=== PATIENT | male | born 1950 | race Caucasian/White ===

== ENCOUNTER → 2019-11-20 | Outpatient (REF) | payer MEDICARE, MEDICAID ==
[~2019-11-20] MED LIST: AMLO10TA5 PO; ARIP1TAB6 PO; ASPI81TA85 PO; ATOR40TA75 PO; B-12100021 PO; CARV6.25 PO; COMB0.2S OU; FAMO40TA3 PO; FINA5TAB2 PO; FLOM0.4C39 PO; FLUO40CA PO; MAGN400T14 PO; RHOP0.02 OS; VITA200028 PO; XALA0.007 OU
== END ==
LOC: M SMT 13:42
PROVIDERS: ATTEND Urology
DX: D49.4 Neoplasm of unspecified behavior of bladder (principal); N39.0 Urinary tract infection, site not specified

== ENCOUNTER → 2020-01-15 | Outpatient (REF) | payer MEDICARE, MEDICAID ==
[~2020-01-15] MED LIST changes: +DOCU8.6T PO; +DRIS50003 PO; +MAGN400C2 PO; +MIRA3350 PO
== END ==
LOC: M SMT 16:41
PROVIDERS: ATTEND Urology
DX: D49.4 Neoplasm of unspecified behavior of bladder (principal); N39.0 Urinary tract infection, site not specified

== ENCOUNTER → 2020-01-19 | Outpatient (CLI) | payer MEDICARE, MEDICAID | LOC: M LABSMTC 12:12 | PROVIDERS: ATTEND Anesthesiology | DX: Z03.818 Encounter for observation for suspected exposure to other biological agents ruled out (principal); Z11.59 Encounter for screening for other viral diseases | CPT/HCPCS: C9803; U0003 ==

== ENCOUNTER → 2020-01-23 | Outpatient (CLI) | payer MEDICARE, MEDICAID ==
[~2020-01-23] MED LIST changes: -AMLO10TA5 PO; +AMLO1TAB25 PO; -ASPI81TA85 PO; +ASPI81TA86 PO; +CALC1CAP31 PO; +CEFD300CAP PO; +LISI40TA4 PO; +PLAV1TAB2 PO
== END ==
LOC: M LABSMTC 09:57
PROVIDERS: ATTEND Anesthesiology
DX: Z01.818 Encounter for other preprocedural examination (principal); Z11.59 Encounter for screening for other viral diseases
CPT/HCPCS: C9803; U0003

== ENCOUNTER 2020-01-26 06:14 | Day surgery (SDC) | payer MEDICARE, MEDICAID ==
[~2020-01-26] VITALS: Ht 167.6 cm; Wt 49.0 kg
[2020-01-26] VITALS (9 sets, daily range): BP systolic 162–174; BP diastolic 64–86
[2020-01-26] MEDS: HEPARIN SOD (PORCINE) 5000UNITS/ML 1ML VIAL/SYRINGE SC SCH ×3 (06:00→21:07)
[~2020-01-26 06:14] MED LIST changes: -CALC1CAP31 PO; -CEFD300CAP PO; +LIDOCAINE 1% MDV 20ML VIAL SQ PRN; -LISI40TA4 PO; +LR 1,000 ML IV ONE; -PLAV1TAB2 PO; +ceFAZolin SOD 2 GM in IV 1 EA IV ONE
[2020-01-26] MEDS ORDERED: ceFAZolin SOD 2 GM in IV 1 EA IV ONE (07:00)
[2020-01-26] MEDS ORDERED: LR 1,000 ML IV ONE (07:00)
[2020-01-26] MEDS ORDERED: MIDAZOLAM INJ 2MG/2ML VIAL (J2250 PER 1MG) As Ordered ONE (07:16)
[2020-01-26] MEDS ORDERED: fentaNYL 100 MCG/2 ML INJECTION (J3010) As Ordered ONE (07:17)
[2020-01-26] MEDS ORDERED: LIDOCAINE 2% 100MG/5ML SDV (FOR ANES.) As Ordered ONE (07:17)
[2020-01-26] MEDS ORDERED: propofoL 200 MG/20 ML VIAL As Ordered ONE (07:18)
[2020-01-26] MEDS ORDERED: ISOVUE-300 61% 50ML VIAL As Ordered ONE (08:17)
[2020-01-26] MEDS ORDERED: ePHEDrine SULFATE 25 MG/5 ML(5MG/ML) SYRINGE As Ordered ONE (08:25)
[2020-01-26] MEDS ORDERED: LABETALOL 100MG/20ML VIAL As Ordered ONE (08:26)
[2020-01-26] MEDS ORDERED: ONDANSETRON 4MG/2ML VIAL As Ordered ONE (08:31)
[2020-01-26] MEDS ORDERED: ONDANSETRON 4MG/2ML VIAL IV PRN ×2 (09:00→09:15)
[2020-01-26] MEDS ORDERED: ACETAMINOPHEN TAB 650MG DOSE (2X325MG) PO PRN (09:00)
[2020-01-26] MEDS ORDERED: fentaNYL 100 MCG/2 ML INJECTION (J3010) IV PRN (09:15)
[2020-01-26] MEDS ORDERED: PILL CUTTER 1 EACH XX PRN (09:15)
[2020-01-26] MEDS ORDERED: LR 1,000 ML IV SCH (09:15)
[2020-01-26] MEDS ORDERED: ACETAMINOPHEN *IV* 1,000 MG in IV 1 EA IV ONE (09:30)
--- NOTE | 2020-01-26 11:25 | REP ---
Retrograde pyelogram: Two views. History: Left stent placement. 16 seconds of fluoroscopy time is reported. Findings: A sequence of two last image hold fluoroscopically obtained spot radiographs of the abdomen document left ureteral cannulation, contrast injection, and double pigtail stent placement. Electronically Signed by Bishnu Higgins MD 01/26/2020 08:33 A
[2020-01-26] MEDS: ASPIRIN 81 MG ENTERIC TAB PO SCH (12:41)
[2020-01-26] MEDS: FLUoxetine 20 MG CAP PO SCH (12:41)
[2020-01-26] MEDS: SENOKOT S TAB PO SCH (12:41)
[2020-01-26] MEDS: FAMOTIDINE 20 MG TAB PO SCH (12:42)
[2020-01-26] MEDS: CARVedilol 6.25 MG TAB PO SCH (20:38)
[2020-01-26] MEDS ORDERED: amLODIPine 10 MG TAB PO SCH (21:00)
[2020-01-26] MEDS ORDERED: LATANOPROST 0.005% OPHTH SOLN 2.5 ML OU SCH (21:00)
[2020-01-26] MEDS ORDERED: ATORVASTATIN 20 MG TAB PO SCH (21:00)
[2020-01-27 02:00] VITALS: BP 149/71
[2020-01-27] MEDS: HEPARIN SOD (PORCINE) 5000UNITS/ML 1ML VIAL/SYRINGE SC SCH (05:03)
[2020-01-27 06:00] VITALS: BP 139/69
[2020-01-27 09:11] VITALS: BP 141/70
[2020-01-27] MEDS: ASPIRIN 81 MG ENTERIC TAB PO SCH (09:11)
[2020-01-27] MEDS: CARVedilol 6.25 MG TAB PO SCH (09:11)
[2020-01-27] MEDS: FLUoxetine 20 MG CAP PO SCH (09:11)
[2020-01-27] MEDS: FAMOTIDINE 20 MG TAB PO SCH (09:11)
[2020-01-27] MEDS: SENOKOT S TAB PO SCH (09:11)
[2020-01-27 10:00] VITALS: BP 150/73
--- NOTE | 2020-01-28 10:41 | RO ---
DATE OF PROCEDURE: 01/26/2020 PREPROCEDURE DIAGNOSIS: Bladder tumors. POSTPROCEDURE DIAGNOSIS: Bladder tumors. PROCEDURE: Cystoscopy, transurethral resection of bladder tumors (less than 2 cm), left retrograde pyelogram with intraoperative interpretation of images, left ureteral stent placement. SURGEON: True Brantley MD [employer] ELECTRICAL ENGINEER: None ANESTHESIA: General. OPERATIVE INDICATIONS: This is a 69-year-old male who was found to have a small bladder tumor near the dome on recent cystoscopy. He is brought to the operating room today for treatment. DESCRIPTION OF PROCEDURE: The patient was brought to the operating room, and general anesthesia was induced. Prophylactic antibiotics were infused. The patient was then placed in the dorsal lithotomy position and prepped and draped in the usual sterile fashion. At this point, I attempted to insert a resectoscope into the urethral meatus, but it would not go into the urethral meatus because it was too narrow. I, therefore, dilated the meatus with 28-Turkish using curved metal sounds. I then inserted the resectoscope using the visual obturator and advanced into the bladder. The bladder was then thoroughly examined. Of note, there was a small papular tumor measuring around 0.5 cm size at the dome. There also appeared to be a small tumor on the left lateral wall just lateral to the left ureteral orifice. No other tumors were seen. Other than that, there was a moderate amount of bullous edema inside the bladder. I then utilized a loop to resect both these tumors, and they were sent separately. The one at the dome was sent as a bladder tumor at dome, and the one on the left was sent as bladder tumor left lateral wall. Once done, the base of the resection was cauterized to achieve good hemostasis. Of note, due to the proximity of the tumor in the left wall to the left ureter orifice, I examined it for several minutes, and I did not see the left ureteral orifice reflux in the urine. This raised concern; and, therefore, I decided to place a left ureteral stent. I then advanced a guidewire to the left collecting system, and then a 5-Turkish open-ended ureteral catheter was advanced over the wire. The wire was then removed, and then a retrograde pyelogram was performed. It was notable for mild left hydronephrosis. There was no extravasation. I then advanced the wire back up the left collecting system and removed the ureteral catheter. I then utilized the wire to advance a 6-Turkish x 22-32 cm double J ureteral stent into the left collecting system. The wire was removed, and there were adequate curls of the stent in the left renal pelvis and in the bladder. I then removed the resectoscope and inserted an 18-Turkish Arrington catheter into the bladder. The balloon was filled with 10 mL of sterile water, and then the catheter was connected to gravity drainage. This marked the conclusion of the procedure. The patient was taken out of the dorsal lithotomy position, awakened from anesthesia, and transported to the recovery room in stable condition. ESTIMATED BLOOD LOSS: 5 mL. COMPLICATIONS: None. SPECIMENS: Bladder tumor at the dome, bladder tumor in left lateral wall. PLAN: The patient will be monitored overnight and then discharged home. He will followup in the clinic in approximately 1 week for pathology results. We will take his stent out in a week or two, as well.
== END 2020-01-27 12:00 | disposition home or self-care (01) ==
LOC: M SDC 06:14 → M MSPAV 11:20 → M SDC 01-27 12:00
PROVIDERS: ATTEND Urology
DX: C67.1 Malignant neoplasm of dome of bladder (principal); C67.2 Malignant neoplasm of lateral wall of bladder; I25.2 Old myocardial infarction; I10 Essential (primary) hypertension; E11.9 Type 2 diabetes mellitus without complications; Z95.1 Presence of aortocoronary bypass graft; Z91.010 Allergy to peanuts; Z79.82 Long term (current) use of aspirin; Z79.899 Other long term (current) drug therapy
CPT/HCPCS: 36415; 52234; 52332; 74420; 86850; 86900; 86901; 88305; C1769; C2617; G0378; J0131; J1644; J2405; J3010; Q9967

== ENCOUNTER 2020-02-10 15:17 | Inpatient (IN) | payer MEDICARE, MEDICAID ==
[~2020-02-10] VITALS: Ht 167.6 cm; Wt 50.3 kg
[~2020-02-10 15:17] MED LIST changes: +AMLO10TA5 PO; -AMLO1TAB25 PO; +ASPI81TA85 PO; -ASPI81TA86 PO; -LIDOCAINE 1% MDV 20ML VIAL SQ PRN; -LR 1,000 ML IV ONE; -ceFAZolin SOD 2 GM in IV 1 EA IV ONE
[2020-02-10 17:55] VITALS: BP 138/65
[2020-02-10] MEDS ORDERED: PERCOCET 5MG/325MG TAB PO PRN ×2 (19:00)
[2020-02-10] MEDS ORDERED: MORPHINE 4 MG/ML 1ML VIAL/SYRINGE (J2270) IV PRN (19:00)
[2020-02-10] MEDS ORDERED: MORPHINE 4 MG/ML 1ML VIAL/SYRINGE (J2270) IV ONE (19:00)
[2020-02-10 19:28] LABS: BASO % 0.3 % (0.0-1.0); EOS % 0.1 % (0.0-3.0); HEMOGLOBIN 10.8 g/dl (13.5-17.5); LYMPH # 0.8 10^3/uL (1.5-5.0); LYMPH % 7.7 % (24.0-44.0); MEAN CORPUSCULAR HEMOGLOBIN 29.5 pg (27.0-33.0); MEAN CORPUSCULAR HGB CONC 32.7 g/dl (32.0-36.5); MEAN CORPUSCULAR VOLUME 90.2 fl (80.0-96.0); MONO # 0.3 10^3/uL (0.0-0.8); MONO % 2.5 % (0.0-5.0); NEUTROPHILS # 8.8 10^3/uL (1.5-8.5); NEUTROPHILS % 88.7 % (36.0-66.0); PLATELET COUNT, AUTOMATED 198 10^3/uL (150-450); RED BLOOD COUNT 3.66 10^6/uL (4.30-6.10)
[2020-02-10] MEDS ORDERED: LISI40TA PO (19:38)
[2020-02-10] MEDS ORDERED: CALC1CAP31 PO (19:38)
[2020-02-10] MEDS ORDERED: PLAV1TAB2 PO (19:38)
[2020-02-10 19:53] LABS: ALBUMIN 3.2 GM/DL (3.2-5.2); BILIRUBIN,TOTAL 0.6 MG/DL (0.2-1.0); CALCIUM LEVEL 8.6 MG/DL (8.8-10.2); CREATININE FOR GFR 2.17 MG/DL (0.70-1.30); GLOMERULAR FILTRATION RATE 32.3 (>49); POTASSIUM SERUM 4.2 MEQ/L (3.5-5.1); TOTAL PROTEIN 6.9 GM/DL (6.4-8.2)
[2020-02-10 19:55] LABS: CK-MB VALUE MASS 2.9 NG/ML (<3.6); MB/CK RELATIVE INDEX 4.26 (< OR =4); TROPONIN I 0.02 NG/ML (< 0.10)
[2020-02-10 20:00] VITALS: BP 166/79
--- NOTE | 2020-02-10 21:45 | SMCUROLCON ---
Urology Consultation General Date of Consultation 02/10/20 Reason For Consultation This patient is seen for Post Op Bladder Surgery Complications. History of Present Illness The patient is a 69-year-old white male with a past medical history for bladder cancer, status post bladder tumor resection and left ureteral stent insertion. The patient was found to have bladder cancer and had a bladder tumor resection last month. A left ureteral stent was inserted. Because the left wall bladder tumor was quite near the ureteral orifice. Also at the time of surgery, the patient was noted to have severe bullous edema of the bladder rose for unknown reason. He states that he had been voiding quite well until recently and this diminished because he just had no appetite or thirst and therefore was not eating or drinking anything for several days. He presented to the emergency room at [facility] for complaint of abdominal discomfort. A Arrington catheter was inserted and a CT scan was performed. The scan reportedly showed air in the bladder wall. I cannot find those x-rays or the report to review. Urology consult was called to help manage this patient. Past Medical History Medical History Cataracts, hearing loss, cardiac disorder, prior myocardial infarction, coronary artery disease, hypertension, bladder cancer, arthritis, diabetes, depression and anxiety Surgical Hstory Patient had a coronary artery bypass grafting, TUR bladder tumor. eye and ear surgery Family History Significant Family History: No pertinent family hx Medications Current Medications Current Medications Medications (Trade) Dose Ordered Sig/Chantal Route PRN Reason Start Time Stop Time Status Last Admin Dose Admin Home Med (Med Rec Complete!) ASDIRECTED XX 02/10/20 19:45 02/10/20 19:41 DC Morphine Sulfate (Morphine Sulfate Inj) 3 mg Q2HP PRN IV SEVERE PAIN (PS 8-10) 02/10/20 19:00 Oxycodone/ Acetaminophen (Percocet 5mg/ 325mg Tablet) 1 tab Q4HP PRN PO MILD/MODERATE PAIN (PS 1-7) 02/10/20 19:00 Oxycodone/ Acetaminophen (Percocet 5mg/ 325mg Tablet) 2 tab Q6HP PRN PO SEVERE PAIN (PS 8-10) 02/10/20 19:00 Allergies Allergies: Coded Allergies: [place] (Verified Allergy, Intermediate, hives, 11/17/19) Review of Systems General: Reports: Normal Appetite; Denies: Fatigue, Malaise Constitutional: Denies: Fever, Chills, Sweats, Weakness, Malaise Eyes: Denies: Pain, Vision change ENT: Denies: Head Aches, Sore Throat, Epistaxis Skin: Denies: Rash, Lesions, Breakdown, Nail Changes Pulmonary: Denies: Dyspnea, Cough Cardiovascular: Denies Chest Pain, Denies Palpitations Gastrointestinal: Reports: Constipation; Denies: Nausea, Vomiting, Abdominal Pain Genitourinary: Reports: Other Symptoms (difficulty voiding) Hematologic: Denies: Bruising, Bleeding Excessively Endocrine: Denies: Polydipsia, Polyphagia, Polyuria Musculoskeletal: Denies: Neck Pain, Back Pain Neurological: Denies: Weakness, Numbness, Incoordination, Change in Speech Psych: Reports: Mood Normal; Denies: Anxiety, Depression Physical Examination General Exam: Mild Distress EYE EXAM: PERRLA, Conjunctiva & lids normal, EOMI; No: Sclera icteric ENT EXAM: Atraumatic, Mucous membr. moist/pink, Pharynx Normal Neck Exam: Supple; No: JVD, thyromegaly Abdomen Exam: Other (flat, soft, benign with no masses, organomegaly or tenderness) Male Exam: Normal Genital Exam Male Exam Prostate is 25 g and benign. No other rectal masses Skin Exam: Nl turgor and temperature; No: Rash, Breakdown Neuro Exam: No: Normal Gait, Normal Speech, Strength at 5/5 X4 ext, Normal Tone, Sensation Intact, Cranial Nerves 3-12 NL, Reflexes 2+, Other Psych Exam: Mental status NL, Mood NL, Oriented x 3 Vital Signs/I&O Vital Signs Date Time Temp Pulse Resp B/P (MAP) Pulse Ox O2 Delivery O2 Flow Rate FiO2 02/10/20 20:26 20 02/10/20 17:55 98.1 59 138/65 (89) 100 Room Air Laboratory Data 24H Labs Laboratory Tests 2 02/10/20 18:26: Urine Color YELLOW, Urine Appearance TURBIDH, Urine pH 5.0, Urine Specific [place] 1.017, Urine Protein 2+H, Urine Glucose (UA) 1+H, Urine Ketones 1+H, Urine Blood 3+H, Urine Nitrite NEGATIVE, Urine Bilirubin NEGATIVE, Urine Urobilinogen 0.2, Urine Leukocyte Esterase 3+H, Urine WBC (Auto) TNTCH, Urine RBC (Auto) 68H, Urine Hyaline Casts (Auto) 0, Urine Bacteria (Auto) 2+H, Urine Squamous Epithelial Cells 0, Urine Mucus (Auto) SMALL, Urine Sperm (Auto) 02/10/20 19:16: Immature Granulocyte % (Auto) 0.7, Neutrophils (%) (Auto) 88.7H, Lymphocytes (%) (Auto) 7.7L, Monocytes (%) (Auto) 2.5, Eosinophils (%) (Auto) 0.1, Basophils (%) (Auto) 0.3, Neutrophils # (Auto) 8.8H, Lymphocytes # (Auto) 0.8L, Monocytes # (Auto) 0.3, Eosinophils # (Auto) 0.0, Basophils # (Auto) 0.0, Nucleated Red Blood Cells % (auto) 0.0, Anion Gap 12, Glomerular Filtration Rate 32.3L, Lactic Acid Level 1.3, Calcium Level 8.6L, Total Bilirubin 0.6, Aspartate Amino Transf (AST/SGOT) 11, Alanine Aminotransferase (ALT/SGPT) 8L, Alkaline Phosphatase 68, Total Creatine Kinase 68, Creatine Kinase MB 2.9, Creatine Kinase MB Relative Index 4.26H, Troponin I 0.02, MB-Gmh-T-Type Natriuretic Peptide 4382H, Total Protein 6.9, Albumin 3.2, Albumin/Globulin Ratio 0.9 CBC/BMP Laboratory Tests 02/10/20 19:16 Microbiology Microbiology 02/10/20 Urine Culture, Received Pending Assessment Patient has ongoing bladder problems. I am not convinced that his current condition is related to his prior surgery. He had been noted to have significant bullous edema of the bladder. Before the bladder tumor resection. He will continue to need monitoring and O2 continue antibiotics at this point. Plan CT of the abdomen and pelvis will be repeated tomorrow. Continue IV antibiotics and intravenous fluids for hydration and monitor the patient's condition with CBC and BMP. I'll continue to follow with you. Time Spent on Consult: Time Spent / Consult (Minutes): 70 HEIDY FERNANDEZ MD Feb 10, 2020 21:36
--- NOTE | 2020-02-10 21:50 | HPE ---
DATE OF ADMISSION: 02/10/2020 CC: Suprapubic bladder pain s/p Bladder tumor biopsy HPI: 69 male w pmh significant for Coronary artery disease (CAD), stent, coronary artery bypass graft (CABG), chronic kidney disease (CKD) IV, diabetes, reflux, obstructive uropathy, bladder tumor, bladder cancer, anemia, transferred from [facility] Emergency Room where he presented with suprapubic abdominal pain status post bladder tumor biopsy with air found on CT abdomen and pelvis, transferred to [facility] for possible bladder perforation. Patient says that he was in his usual state of health until after surgery when "he didn't feel good," with complaints of pain in the suprapubic area. Despite Arrington catheter patient has had worsening pain. He has been having cloudy urine and has been feeling very sleepy all the time. He was very achy from the suprapubic area despite taking pain medications once a day, no fever or chills, worse when he walks, sometimes moves to the right side and the left side. No nausea or vomiting. No fever or chills at home. Patient denies any dysuria, urgency, frequency. He continues with a Arrington catheter. He has had decrease in appetite and weight loss. He has had no back pain. Patient was found to be hypertensive, was given metoprolol at [facility] Emergency Department (ED) and transferred to [facility] for further evaluation. Patient also complains of some shortness of breath, no dyspnea on exertion, paroxysmal nocturnal dyspnea (PND), or orthopnea and did complain of one episode of liquid emesis. PAST MEDICAL HISTORY: Coronary artery disease (CAD), stent, coronary artery bypass graft (CABG), chronic kidney disease (CKD) IV, diabetes, reflux, obstructive uropathy, bladder tumor, bladder cancer, anemia. SURGICAL HISTORY: Bladder tumor biopsy 01/26/2020, CABG 2014, endoscopy with esophageal dilatation 2018. HOME MEDICATIONS: - amlodipine 10 mg nightly - Abilify - aspirin 81 daily - Lipitor 40 daily - Coreg 6.25 twice a day - vitamin B12 1000 mcg daily - Colace 100 twice a day - vitamin D 50,000 units weekly - finasteride 5 mg daily - glipizide 2.5 daily - latanoprost drops as needed - famotidine 40 daily - fluoxetine 40 daily - Rhopressa - polyethylene glycol - Senna nightly - Flomax 0.4 nightly - Timolol - torsemide ALLERGIES: Peanuts, eggs, orange allergy and milk allergy. SOCIAL HISTORY: Patient lives in an apartment alone. He has a friend who is the health care proxy. He does not have a health care proxy form nor does he have a Medical Orders for Life-Sustaining Treatment (MOLST) form filled out. Father of cancer, unknown type. Mother of old age. 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 Has not touched alcohol in about 3-5 years. Lives by himself in the apartment. REVIEW OF SYSTEMS: Per history of present illness (HPI). 12-point system otherwise negative. PHYSICAL EXAMINATION: Temperature 98.1, pulse 59, respiratory rate 16, blood pressure 138/65, 100% on room air. Generally: Patient appears older than his stated age, disheveled, missing teeth. Dry mucous membranes. No jugular venous distention (JVD). No thyromegaly. No cervical lymphadenopathy. Lungs: Clear to auscultation. No wheezing, rales, or rhonchi. Heart: S1, S2, sinus bradycardia. Patient has a midsternal well-healed scar. Abdomen: Soft, tender in suprapubic area. Arrington catheter in place with cloudy urine. Extremities: No cyanosis, clubbing, or any pitting edema. LABORATORY DATA: From [facility] today: White count 9.8, hemoglobin 12, hematocrit 36, platelet count 194, 77% neutrophils. INR 1.02, PT 10.6, PTT 25.6. BNP 3449. Sodium 141, potassium 4, chloride 99, bicarbonate 29, BUN 40, creatinine 2.3, glucose 122, lactic acid of 2, calcium 9.1, total bilirubin 0.8, AST 16, ALT 10, alkaline phosphatase 72, troponin less than 0.017, total protein 7.5, albumin of 3.4. ASSESSMENT AND PLAN: This is a 69-year-old male with history of bladder cancer presented with suprapubic pain, shortness of breath, and one episode of nausea with suprapubic pain, questionable air in the bladder, rule out perforation, transferred to [facility] for further evaluation by urology. CURRENT ISSUES: 1. Abnormal CT finding of air in bladder Rule out perforation versus cystitis. Patient will be given intravenous antibiotics, IV fluids. Will be kept nothing by mouth. Urologist, Dr. Nur, has been consulted. Check urinalysis (UA), urine culture and sensitivity (C and S). Compression stockings for deep venous thrombosis (DVT) prophylaxis. 2. Bladder cancer. Currently under Dr. Brantley. Outpatient followup. Urologist, Dr. Nur, has been consulted during this admission. 3. Uncontrolled hypertension. Currently 137 systolic after patient was given medications. Will continue on his home medication list. Continue with nothing by mouth status. For now, hold patient's aspirin in case he goes to the operating room. 4. Chronic bladder outlet obstruction. Currently with Arrington catheter with urinary retention. May resume on home medications. 5. History of coronary artery disease (CAD) / coronary artery bypass graft (CABG). Aspirin will be held for now until patient is seen by urology. He will then decide whether he is appropriate for evaluation of bladder perforation. Will obtain a stat bladder ultrasound. 5. Hypertension. May resume on home dose of Coreg. 6. History of reflux. Continue on famotidine. 7. Depression. Continue on fluoxetine. Patient is DO NOT RESUSCITATE / DO NOT INTUBATE. MTDD
[2020-02-11] VITALS: BP 167/70
[2020-02-11] MEDS: NS 1,000 ML IV SCH ×2 (02:11→16:00)
[2020-02-11 04:00] VITALS: BP 150/66
[2020-02-11 05:40] LABS: HEMATOCRIT 34.9 % (42.0-52.0); HEMOGLOBIN 11.2 g/dl (13.5-17.5); MEAN CORPUSCULAR HEMOGLOBIN 29.6 pg (27.0-33.0); MEAN CORPUSCULAR HGB CONC 32.1 g/dl (32.0-36.5); MEAN CORPUSCULAR VOLUME 92.3 fl (80.0-96.0); PLATELET COUNT, AUTOMATED 182 10^3/uL (150-450); RED BLOOD COUNT 3.78 10^6/uL (4.30-6.10); WHITE BLOOD COUNT 10.2 10^3/uL (4.0-10.0)
[2020-02-11 05:57] LABS: CALCIUM LEVEL 8.5 MG/DL (8.8-10.2); CREATININE FOR GFR 2.33 MG/DL (0.70-1.30); GLOMERULAR FILTRATION RATE 29.7 (>49)
[2020-02-11] MEDS ORDERED: MIRALAX *UNIT DOSE* 17GM PACKET PO PRN (07:00)
[2020-02-11] MEDS ORDERED: PILL CUTTER 1 EACH XX PRN (07:30)
[2020-02-11 08:00] VITALS: BP_SYST 142; BP_SYST 152; BP_DIAS 70; BP_DIAS 84
[2020-02-11] MEDS ORDERED: LevoFLOXacin IV 750 MG in IV 1 EA IV ONE (08:00)
[2020-02-11] MEDS: SENOKOT S TAB PO SCH (08:56)
[2020-02-11] MEDS: MAGNESIUM OXIDE 400 MG TAB (MAG-OX) PO SCH (08:56)
[2020-02-11] MEDS: FLUoxetine 20 MG CAP PO SCH (08:56)
[2020-02-11] MEDS: CARVedilol 6.25 MG TAB PO SCH ×2 (08:56→21:00)
[2020-02-11] MEDS: CALCITRIOL 0.25 MCG CAP (S0169) PO SCH (08:56)
[2020-02-11] MEDS: FAMOTIDINE 20 MG TAB PO SCH (08:56)
[2020-02-11] MEDS: CLOPIDOGREL 75 MG TAB PO SCH (09:00)
[2020-02-11] MEDS: ASPIRIN 81 MG ENTERIC TAB PO SCH (09:00)
--- NOTE | 2020-02-11 10:39 | REP ---
CHEST, PORTABLE: Two portable views of the chest are performed. I have no prior study for comparison. There appears to be fibroatelectatic change along the left heart border with no definite acute infiltrate. The heart is not enlarged. The mediastinal silhouette is otherwise unremarkable. There are multiple sternal wires and mediastinal clips present. IMPRESSION: No evidence of acute pulmonary disease. Electronically Signed by Rahul Gunderson MD 02/12/2020 09:24 A
[2020-02-11 12:00] VITALS: BP 154/72
--- NOTE | 2020-02-11 12:09 | ECGEPIP ---
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
--- NOTE | 2020-02-11 15:25 | REP ---
REASON: Pain. PRIORS: None. The lack of intravenous contrast decreases the sensitivity of the exam. The lung bases are clear. Limited evaluation of the solid intra-abdominal organs and gallbladder show no gross abnormalities. Limited evaluation of the pancreas and adrenal glands show no gross abnormalities. Limited evaluation of the right kidney shows no gross abnormalities. Limited evaluation of the left kidney shows a double pigtail stent in place, proximal portion is in the renal pelvis and the distal portion is in the urinary bladder. There is a Arrington balloon decompressing the urinary bladder. Air densities are seen in the dome of the urinary bladder. There is no evidence of free fluid or free air in the abdomen or pelvis. Limited evaluation of the bowel loops and mesenteries show no gross abnormalities. There is no evidence of an intra-abdominal or intrapelvic mass or adenopathy on this limited exam. Evaluation of the abdominal aorta and para-aortic regions show no gross abnormalities. Bone window technique throughout the exam shows age-related chronic changes. IMPRESSION: 1. The exam is limited without intravenous and/or bowel preparatory contrast administration. 2. Bilateral perinephric stranding likely chronic. 3. Left-sided renal collecting system stent. 4. Air density in the urinary bladder, etiology uncertain. 5. Other findings and limitation as described above. Electronically Signed by Kaushal Perez DO 02/11/2020 05:21 P
[2020-02-11 16:00] VITALS: BP 146/68
--- NOTE | 2020-02-11 16:06 | IPNPDOC ---
Text Note Date of Service The patient was seen on 02/11/20. NOTE Subjective: Patient is a 69-year-old male with a PMHx of Bladder cancer w/ obstructive uropathy s/p stent (01/26/2020), CAD s/p stent & CABG, DM2, CKD4, GE RD who was transferred from [facility] ER after experiencing suprapubic abdominal pain. Patient has had a bladder tumor resection one month ago and had a left ureteral stent placed because tumor was near the ureteral orifice. At [facility] patient had a CT scan completed that revealed air in the bladder and was transferred to [facility] for further evaluation. Patient had a urine sample that was sent off, that was consistent with infection. He was admitted to the hospitalist service for further evaluation and treatment and urology was called on consultation. Patient was seen and examined at the bedside. Patient appears to be doing well, sitting up in chair. Denies any nausea, vomiting, diarrhea. Reports mild abdominal pain - but significantly improved. Has Arrington in place. Objective: Vitals (See below) General: Lying in bed, appears comfortable, awake / alert HEENT: NC, AT CVS: +S1S2 Lungs: Fair air entry b/l, air entry appears to be fair bilaterally without evidence of rhonchi, crackles or wheezing Abdomen: Soft, nondistended and nontender Extremities: No evidence of LE edema, - Calf tenderness Assessment and plan: Air in Bladder on CT imaging - likely 2/2 cystitis / recent procedure, possibly 2/2 bladder perforation - Clinically patient reports that his pain is doing significantly better - Remains hemodynamically stable and afebrile - Urine analysis is consistent with infection; urine culture is still pending - CT abdomen / pelvis 02/10: 1. The exam is limited without intravenous and/or bowel preparatory contrast administration. 2. Bilateral perinephric stranding likely chronic. 3. Left-sided renal collecting system stent. 4. Air density in the urinary bladder, etiology uncertain. 5. Other findings and limitation as described above. - Levofloxacin started this morning - Urology on consultation; discussed case; will leave Arrington catheter in place and continue with antibiotics - Patient will likely require Arrington catheter on discharge with continued antibiotics Bladder cancer - c/w Tamsulosin and Finasteride - Urology on consultation - Patient follows with Dr. Brantley as an outpatient Difficulty swallowing - Speech therapy consulted; c/w modified diet HTN - BP well controlled - c/w Amlodipine and Carvedilol with holding parameters CAD s/p CABG and Stent - Denies chest pain, shortness of breath or palpitations - Will resume ASA and Plavix today; no plans for surgical intervention at this time - c/w Atorvastatin DLP - c/w Atorvastatin Depression - c/w Fluoxetine GI prophylaxis - c/w Famotidine DVT prophylaxis - c/w TEDs/Sequentials VS,Fishbone, I+O VS, Fishbone, I+O Laboratory Tests 02/10/20 19:16 02/11/20 05:22 Vital Signs Date Time Temp Pulse Resp B/P (MAP) Pulse Ox O2 Delivery O2 Flow Rate FiO2 02/11/20 12:00 97.4 66 18 154/72 (99) 94 Room Air I&O- Last 24 Hours up to 6 AM 02/11/20 06:00 Intake Total 0 ml Output Total 0 ml Balance 0 ml PACHECO HUDSON MD Feb 11, 2020 16:06
[2020-02-11] MEDS: ONDANSETRON 4MG/2ML VIAL IV PRN (18:34)
--- NOTE | 2020-02-11 19:05 | IPNPDOC ---
Subjective Review oF Systems Chief Complaint The patient is a 69-year-old male admitted with a reason for visit of Post Op Bladder Surgery Complications. Events since Last Encounter CT scan was performed this morning showing that the ureteral stent is in proper position on the left side. Tenderness to have what appears to be air in the anterior bladder wall. I'm not sure if this is where the bladder tumor was resected, or not. This is a perforation, it is extraperitoneal therefore should resolve with Arrington catheter drainage. General: Reports: Normal Appetite; Denies: Fatigue, Malaise Constitutional: Denies: Fever, Chills, Sweats, Weakness, Malaise Objective Physical Examination General Exam: Alert, No Acute Distress Other physical findings The Arrington catheter is draining clear yellow urine and the patient seems to be tolerating this fairly well. No evidence of edema Vital Signs/I&O Vital Signs Date Time Temp Pulse Resp B/P (MAP) Pulse Ox O2 Delivery O2 Flow Rate FiO2 02/11/20 16:00 97.9 61 16 146/68 (94) 96 Room Air I&O- Last 24 Hours up to 6 AM 02/11/20 06:00 Intake Total 0 ml Output Total 0 ml Balance 0 ml Laboratory Data Labs 24H Laboratory Tests 2 02/10/20 19:16: Immature Granulocyte % (Auto) 0.7, Neutrophils (%) (Auto) 88.7H, Lymphocytes (%) (Auto) 7.7L, Monocytes (%) (Auto) 2.5, Eosinophils (%) (Auto) 0.1, Basophils (%) (Auto) 0.3, Neutrophils # (Auto) 8.8H, Lymphocytes # (Auto) 0.8L, Monocytes # (Auto) 0.3, Eosinophils # (Auto) 0.0, Basophils # (Auto) 0.0, Nucleated Red Blood Cells % (auto) 0.0, Anion Gap 12, Glomerular Filtration Rate 32.3L, Lactic Acid Level 1.3, Calcium Level 8.6L, Total Bilirubin 0.6, Aspartate Amino Transf (AST/SGOT) 11, Alanine Aminotransferase (ALT/SGPT) 8L, Alkaline Phosphatase 68, Total Creatine Kinase 68, Creatine Kinase MB 2.9, Creatine Kinase MB Relative Index 4.26H, Troponin I 0.02, SG-Uvj-V-Type Natriuretic Peptide 4382H, Total Protein 6.9, Albumin 3.2, Albumin/Globulin Ratio 0.9 02/11/20 05:22: Nucleated Red Blood Cells % (auto) 0.0, Anion Gap 9, Glomerular Filtration Rate 29.7L, Calcium Level 8.5L CBC/BMP Laboratory Tests 02/10/20 19:16 02/11/20 05:22 Microbiology Microbiology 02/10/20 Urine Culture, Received Pending Assessment/Plan Date Seen The patient was seen on 02/11/20. Problems (1) Bladder tumor Urology Problem Text: Bladder tumor can be managed as an outpatient. Pathology showed that it is a low-grade noninvasive tumor (2) Perforation of bladder Urology Problem Text: The Arrington catheter should resolve any bladder perforation present need to be left indwelling. Plan/VTE VTE Prophylaxis Ordered?: No Plan/Urinary Catheter Urinary Catheter: Other Catheter: (urinary catheter will be left in place until the anterior bladder wall area seems to have improved. He likely will need to be discharged home with the catheter in place.) HEIDY FERNANDEZ MD Feb 11, 2020 19:05
[2020-02-11 20:00] VITALS: BP 132/88
[2020-02-11] MEDS ORDERED: METOCLOPRAMIDE INJ 10MG/2ML VIAL (J2765 PER 1) IV PRN (20:45)
[2020-02-11] MEDS: LATANOPROST 0.005% OPHTH SOLN 2.5 ML OU SCH (21:00)
[2020-02-11] MEDS: ATORVASTATIN 20 MG TAB PO SCH (21:00)
[2020-02-11] MEDS: amLODIPine 10 MG TAB PO SCH (21:00)
[2020-02-11] MEDS: TAMSULOSIN 0.4 MG CAP PO SCH (21:00)
[2020-02-11] MEDS: FINASTERIDE 5 MG TAB PO SCH (21:00)
[2020-02-12] VITALS (7 sets, daily range): BP systolic 124–161; BP diastolic 62–90
[2020-02-12] MEDS: NS 1,000 ML IV SCH ×2 (05:06→20:09)
[2020-02-12] MEDS: ONDANSETRON 4MG/2ML VIAL IV PRN (05:31)
[2020-02-12 05:47] LABS: HEMATOCRIT 30.7 % (42.0-52.0); HEMOGLOBIN 10.1 g/dl (13.5-17.5); MEAN CORPUSCULAR HEMOGLOBIN 29.3 pg (27.0-33.0); MEAN CORPUSCULAR HGB CONC 32.9 g/dl (32.0-36.5); PLATELET COUNT, AUTOMATED 191 10^3/uL (150-450); RED BLOOD COUNT 3.45 10^6/uL (4.30-6.10); WHITE BLOOD COUNT 7.8 10^3/uL (4.0-10.0)
[2020-02-12 06:18] LABS: CALCIUM LEVEL 8.1 MG/DL (8.8-10.2); CREATININE FOR GFR 2.16 MG/DL (0.70-1.30); GLOMERULAR FILTRATION RATE 32.4 (>49)
[2020-02-12] MEDS: MAGNESIUM OXIDE 400 MG TAB (MAG-OX) PO SCH (09:57)
[2020-02-12] MEDS: CLOPIDOGREL 75 MG TAB PO SCH (09:58)
[2020-02-12] MEDS: SENOKOT S TAB PO SCH (09:58)
[2020-02-12] MEDS: FAMOTIDINE 20 MG TAB PO SCH (09:58)
[2020-02-12] MEDS: CALCITRIOL 0.25 MCG CAP (S0169) PO SCH (09:58)
[2020-02-12] MEDS: FLUoxetine 20 MG CAP PO SCH (09:58)
[2020-02-12] MEDS: CARVedilol 6.25 MG TAB PO SCH ×2 (09:59→20:17)
[2020-02-12] MEDS: ASPIRIN 81 MG ENTERIC TAB PO SCH (09:59)
--- NOTE | 2020-02-12 10:51 | IPNPDOC ---
Text Note Date of Service The patient was seen on 02/12/20. NOTE Subjective: Patient is a 69-year-old male with a PMHx of Bladder cancer w/ obstructive uropathy s/p stent (01/26/2020), CAD s/p stent & CABG, DM2, CKD4, GE RD who was transferred from [facility] ER after experiencing suprapubic abdominal pain. Patient has had a bladder tumor resection one month ago and had a left ureteral stent placed because tumor was near the ureteral orifice. At [facility] patient had a CT scan completed that revealed air in the bladder and was transferred to [facility] for further evaluation. Patient had a urine sample that was sent off, that was consistent with infection. He was admitted to the hospitalist service for further evaluation and treatment and urology was called on consultation. Patient was seen and examined at the bedside. Patient denies any chest pain, shortness of breath or palpitations. Reports that his abdominal pain has resolved. Arrington catheter remains in place and is draining. Denies any diarrhea. Objective: Vitals (See below) General: Lying in bed, appears to be comfortable, is awake, alert and oriented 3 HEENT: NC, AT CVS: +S1S2 Lungs: Air entry is fair bilaterally without evidence of rhonchi, crackles or wheezing Abdomen: Abdomen remains soft, without any distention or tenderness appreciated Extremities: No evidence of LE edema, - Calf tenderness Assessment and plan: Air in Bladder on CT imaging - likely 2/2 cystitis / recent procedure, possibly 2/2 bladder perforation - Clinically patient reports that his pain is doing significantly better - Remains hemodynamically stable and afebrile - Urine analysis is consistent with infection; urine culture is still pending - CT abdomen / pelvis 02/10: 1. The exam is limited without intravenous and/or bowel preparatory contrast administration. 2. Bilateral perinephric stranding likely chronic. 3. Left-sided renal collecting system stent. 4. Air density in the urinary bladder, etiology uncertain. 5. Other findings and limitation as described above. - Urology on consultation; discussed case; will leave Arrington catheter in place and continue with antibiotics - c/w Arrington catheter - Currently on Levofloxacin (Day #2); will adjust Cefdinir Bladder cancer - c/w Tamsulosin and Finasteride - Urology on consultation - Patient follows with Dr. Brantley as an outpatient Elevated Cr - likely 2/2 CKD3 - Cr baseline unclear - Will request records from outpatient providers about baseline Cr level - c/w gentle IV fluid hydration for additional 24 hours Difficulty swallowing - Speech therapy consulted; c/w modified diet - Will continue to work with him; will have outpatient follow up HTN - BP well controlled - c/w Amlodipine and Carvedilol with holding parameters CAD s/p CABG and Stent - Denies chest pain, shortness of breath or palpitations - Will resume ASA and Plavix today; no plans for surgical intervention at this time - c/w Atorvastatin DLP - c/w Atorvastatin Depression - c/w Fluoxetine GI prophylaxis - c/w Famotidine DVT prophylaxis - c/w TEDs/Sequentials Disposition: - c/w PT and OT - Anticipate discharge home within 24 hours VS,Fishbone, I+O VS, Fishbone, I+O Laboratory Tests 02/12/20 05:29 Vital Signs Date Time Temp Pulse Resp B/P (MAP) Pulse Ox O2 Delivery O2 Flow Rate FiO2 02/12/20 09:59 74 156/74 02/12/20 06:51 98.7 18 97 Room Air I&O- Last 24 Hours up to 6 AM 02/12/20 06:00 Intake Total 2430 ml Output Total 1275 ml Balance 1155 ml PACHECO HUDSON MD Feb 12, 2020 10:51
[2020-02-12] MEDS: CEFDINIR 300 MG CAP (OMNICEF) PO SCH (11:25)
--- NOTE | 2020-02-12 19:00 | IPNPDOC ---
Subjective Review oF Systems Chief Complaint The patient is a 69-year-old male admitted with a reason for visit of Post Op Bladder Surgery Complications. Events since Last Encounter Currently, patient is quite comfortable and tolerating his Arrington catheter well. He has no complaints and urine output remains good. General: Reports: Normal Appetite; Denies: Fatigue, Malaise Constitutional: Denies: Fever, Chills, Sweats, Weakness, Malaise Eyes: Denies: Pain, Vision change ENT: Denies: Head Aches, Sore Throat, Epistaxis Skin: Denies: Rash, Lesions, Breakdown, Nail Changes Genitourinary: Denies: Dysuria, Frequency, Incontinence, Hematuria Hematologic: Denies: Bruising, Bleeding Excessively Endocrine: Denies: Polydipsia, Polyphagia, Polyuria Musculoskeletal: Denies: Neck Pain, Back Pain Neurological: Denies: Weakness, Numbness, Incoordination, Change in Speech Psych: Reports: Mood Normal; Denies: Anxiety, Depression Objective Physical Examination General Exam: Alert, No Acute Distress Eye Exam: PERRLA, Conjunctiva & lids normal, EOMI; No: Sclera icteric ENT EXAM: Atraumatic, Mucous membr. moist/pink, Pharynx Normal Neck Exam: Supple; No: JVD, thyromegaly Other physical findings Patient is tolerating Arrington catheter well with no signs of irritation, inflammation or infection. Urine output remains good and the urine color is yellow. Vital Signs/I&O Vital Signs Date Time Temp Pulse Resp B/P (MAP) Pulse Ox O2 Delivery O2 Flow Rate FiO2 02/12/20 15:40 98.3 63 19 148/62 (90) 99 Room Air I&O- Last 24 Hours up to 6 AM 02/12/20 06:00 Intake Total 2430 ml Output Total 1275 ml Balance 1155 ml Laboratory Data Labs 24H Laboratory Tests 2 02/12/20 05:29: Nucleated Red Blood Cells % (auto) 0.0, Anion Gap 9, Glomerular Filtration Rate 32.4L, Calcium Level 8.1L CBC/BMP Laboratory Tests 02/12/20 05:29 Microbiology Microbiology 02/10/20 Urine Culture - Final, Complete Escherichia Coli Assessment/Plan Date Seen The patient was seen on 02/12/20. Problems (1) Bladder tumor Urology Problem Text: Bladder tumor can be managed as an outpatient. Pathology showed that it is a low-grade noninvasive tumor (2) Perforation of bladder Urology Problem Text: The Arrington catheter should resolve any bladder perforation present need to be left indwelling. Plan/VTE VTE Prophylaxis Ordered?: No Plan/Urinary Catheter Urinary Catheter: Other Catheter: (urinary catheter will be left in place until the anterior bladder wall area seems to have improved. He likely will need to be discharged home with the catheter in place.) Plan Patient may be discharged home from a urologic standpoint when okay with medicine. I would recommend keeping the Arrington catheter indwelling and he'll be followed up in the office with a cystoscopic evaluation of the bladder, 10-14 days. HEIDY FERNANDEZ MD Feb 12, 2020 19:00
[2020-02-12] MEDS: FINASTERIDE 5 MG TAB PO SCH (20:16)
[2020-02-12] MEDS: amLODIPine 10 MG TAB PO SCH (20:17)
[2020-02-12] MEDS: TAMSULOSIN 0.4 MG CAP PO SCH (20:17)
[2020-02-12] MEDS: ATORVASTATIN 20 MG TAB PO SCH (20:17)
[2020-02-12] MEDS: LATANOPROST 0.005% OPHTH SOLN 2.5 ML OU SCH (22:42)
[2020-02-13 06:00] VITALS: BP 105/56
[2020-02-13 07:04] LABS: HEMATOCRIT 24.8 % (42.0-52.0); MEAN CORPUSCULAR HEMOGLOBIN 29.6 pg (27.0-33.0); MEAN CORPUSCULAR HGB CONC 31.9 g/dl (32.0-36.5); MEAN CORPUSCULAR VOLUME 92.9 fl (80.0-96.0); PLATELET COUNT, AUTOMATED 128 10^3/uL (150-450); RED BLOOD COUNT 2.67 10^6/uL (4.30-6.10)
[2020-02-13 07:08] LABS: HEMOGLOBIN 7.9 g/dl (13.5-17.5)
[2020-02-13 07:16] LABS: CALCIUM LEVEL 7.8 MG/DL (8.8-10.2); CREATININE FOR GFR 1.98 MG/DL (0.70-1.30); GLOMERULAR FILTRATION RATE 35.9 (>49); POTASSIUM SERUM 3.3 MEQ/L (3.5-5.1)
[2020-02-13] MEDS ORDERED: LevoFLOXacin IV 500 MG in IV 1 EA IV SCH (08:00)
[2020-02-13] MEDS ORDERED: CEFD300CAP PO (08:04)
[2020-02-13] MEDS: MAGNESIUM OXIDE 400 MG TAB (MAG-OX) PO SCH (08:14)
[2020-02-13] MEDS: CLOPIDOGREL 75 MG TAB PO SCH (08:14)
[2020-02-13] MEDS: CEFDINIR 300 MG CAP (OMNICEF) PO SCH (08:14)
[2020-02-13] MEDS: FAMOTIDINE 20 MG TAB PO SCH (08:14)
[2020-02-13] MEDS: CALCITRIOL 0.25 MCG CAP (S0169) PO SCH (08:15)
[2020-02-13] MEDS: FLUoxetine 20 MG CAP PO SCH (08:15)
[2020-02-13] MEDS: ASPIRIN 81 MG ENTERIC TAB PO SCH (08:15)
[2020-02-13] MEDS: CARVedilol 6.25 MG TAB PO SCH (08:16)
[2020-02-13 09:43] LABS: BASO % 0.4 % (0.0-1.0); EOS # 0.1 10^3/uL (0.0-0.5); EOS % 2.5 % (0.0-3.0); LYMPH # 1.1 10^3/uL (1.5-5.0); LYMPH % 18.9 % (24.0-44.0); MONO # 0.4 10^3/uL (0.0-0.8); MONO % 7.2 % (0.0-5.0); NEUTROPHILS # 3.9 10^3/uL (1.5-8.5); NEUTROPHILS % 69.7 % (36.0-66.0)
[2020-02-13 10:26] LABS: MAGNESIUM LEVEL 1.8 MG/DL (1.8-2.4)
--- NOTE | 2020-02-13 10:50 | DS.PDOC ---
Discharge Summary General Date of Admission Feb 10, 2020 at 17:53 Date of Discharge 02/13/2020 Discharge Summary PROCEDURES PERFORMED DURING STAY: [None]. ADMITTING DIAGNOSES / DISCHARGE DIAGNOSES: Air in Bladder on CT imaging - likely 2/2 cystitis / recent procedure, possibly 2/2 bladder perforation Bladder cancer Elevated Cr - likely 2/2 CKD3 Difficulty swallowing HTN CAD s/p CABG and Stent DLP Depression GI prophylaxis DVT prophylaxis COMPLICATIONS/CHIEF COMPLAINT: Abdominal pain HISTORY OF PRESENT ILLNESS: Patient is a 69-year-old male with a PMHx of Bladder cancer w/ obstructive uropathy s/p stent (01/26/2020), CAD s/p stent & CABG, DM2, CKD4, GERD who was transferred from [facility] ER after experiencing suprapubic abdominal pain. Patient has had a bladder tumor resection one month ago and had a left ureteral stent placed because tumor was near the ureteral orifice. At [facility] patient had a CT scan completed that revealed air in the bladder and was transferred to [facility] for further evaluation. Patient had a urine sample that was sent off, that was consistent with infection. He was admitted to the hospitalist service for further evaluation and treatment and urology was called on consultation. HOSPITAL COURSE: Air in Bladder on CT imaging - likely 2/2 cystitis / recent procedure, possibly 2/2 bladder perforation - Abdomen is without any tenderness - Remains hemodynamically stable and afebrile - Urine analysis is consistent with infection; Urine culture 02/09: E. Coli - CT abdomen / pelvis 02/10: 1. The exam is limited without intravenous and/or bowel preparatory contrast administration. 2. Bilateral perinephric stranding likely chronic. 3. Left-sided renal collecting system stent. 4. Air density in the urinary bladder, etiology uncertain. 5. Other findings and limitation as described above. - Urology on consultation; discussed case; c/w Arrington catheter in place upon discharge - c/w Cefdinir (renally dose); s/p Levofloxacin Bladder cancer - c/w Tamsulosin and Finasteride - Urology on consultation; patient follows with Dr. Brantley as an outpatient - will have outpatient follow up Elevated Cr - likely 2/2 CKD3 - Cr baseline unclear - Cr has remained stable; will have outpatient follow up with PCP Difficulty swallowing - Speech therapy consulted; c/w modified diet - Will continue to work with him; will have outpatient follow up with Speech therapy HTN - BP well controlled - c/w Amlodipine and Carvedilol with holding parameters CAD s/p CABG and Stent - Denies chest pain, shortness of breath or palpitations - c/w ASA, Plavix and Atorvastatin DLP - c/w Atorvastatin Depression - c/w Fluoxetine GI prophylaxis - c/w Famotidine DVT prophylaxis - c/w TEDs/Sequentials DISCHARGE MEDICATIONS: Please see below. ALLERGIES: Please see below. PHYSICAL EXAMINATION ON DISCHARGE: Vitals (See below) General: Lying in bed, appears to be comfortable, is awake / alert, oriented 3 HEENT: NC, AT CVS: +S1S2 Lungs: Auscultation reveals fair air entry bilaterally without any rhonchi, crackles or wheezing appreciated Abdomen: No tenderness is appreciated. Remains nondistended and soft Extremities:LE are free of pitting edema, - Calf tenderness LABORATORY DATA: Please see below. ACTIVITY: [As tolerated]. DISCHARGE PLAN: Follow-up with primary care provider and Dr. Brantley within 7 days Remain complaint with treatment plan and medications Return to the ER if you experience any problems DISPOSITION: Home with services DISCHARGE CONDITION: [Stable]. TIME SPENT ON DISCHARGE: 35 minutes. Vital Signs/I&Os Vital Signs Date Time Temp Pulse Resp B/P (MAP) Pulse Ox O2 Delivery O2 Flow Rate FiO2 02/13/20 06:00 98.2 64 18 105/56 (72) 96 Room Air I&O- Last 24 Hours up to 6 AM 02/13/20 05:59 Intake Total 2650 ml Output Total 650 ml Balance 2000 ml Laboratory Data Labs 24H Laboratory Tests 2 02/13/20 06:35: Immature Granulocyte % (Auto) 1.3, Neutrophils (%) (Auto) 69.7H, Lymphocytes (%) (Auto) 18.9L, Monocytes (%) (Auto) 7.2H, Eosinophils (%) (Auto) 2.5, Basophils (%) (Auto) 0.4, Neutrophils # (Auto) 3.9, Lymphocytes # (Auto) 1.1L, Monocytes # (Auto) 0.4, Eosinophils # (Auto) 0.1, Basophils # (Auto) 0.0, Nucleated Red Blood Cells % (auto) 0.0, Anion Gap 6L, Glomerular Filtration Rate 35.9L, Calcium Level 7.8L, Magnesium Level 1.8 CBC/BMP Laboratory Tests 02/13/20 06:35 Microbiology Microbiology 02/10/20 Urine Culture - Final, Complete Escherichia Coli Discharge Medications Scheduled Amlodipine Besylate (Amlodipine Besylate) 10 Mg Tablet, 10 MG PO QHS, (Reported) Aripiprazole (Aripiprazole) 5 Mg Tablet, 2.5 MG PO QHS, (Reported) Aspirin (Aspir 81) 81 Mg Tablet.dr, 81 MG PO DAILY, (Reported) Atorvastatin Calcium (Atorvastatin Calcium) 40 Mg Tablet, 40 MG PO QHS, (Reported) Brimonidine Tartrate/Timolol (Combigan 0.2%-0.5% Eye Drops) 5 Ml Drops, 1 DROP OU BID, (Reported) Calcitriol (Calcitriol) 0.25 Mcg Capsule, 0.25 MCG PO DAILY, (Reported) Carvedilol (Carvedilol) 6.25 Mg Tablet, 6.25 MG PO BID, (Reported) Cefdinir (Cefdinir) 300 Mg Capsule, 300 MG PO DAILY Clopidogrel Bisulfate (Plavix) 75 Mg Tablet, 75 MG PO DAILY, (Reported) Cyanocobalamin (Vitamin B-12) (B-12) 1,000 Mcg Tablet, 1,000 MCG PO DAILY, (Reported) Ergocalciferol (Vitamin D2) (Drisdol) 1,250 Mcg Capsule, 1,250 MCG PO weekly, (Reported) MON Famotidine (Famotidine) 40 Mg Tablet, 40 MG PO DAILY, (Reported) Finasteride (Finasteride) 5 Mg Tablet, 5 MG PO QHS, (Reported) Fluoxetine Hcl (Fluoxetine HCl) 40 Mg Capsule, 40 MG PO DAILY, (Reported) Latanoprost (Xalatan) 0.005% 2.5ML Drops, 1 DROP OU QHS, (Reported) Lisinopril (Lisinopril) 40 Mg Tablet, 40 MG PO DAILY, (Reported) Magnesium Oxide (Magnesium) 400 Mg Capsule, 400 MG PO DAILY, (Reported) Netarsudil Mesylate (Rhopressa) 2.5 Ml Drops, 1 DROP OS DAILY, (Reported) Sennosides/Docusate Sodium (Sennosides-Docusate Sodium Tab) 1 Each Tablet, 1 TAB PO DAILY, (Reported) Tamsulosin HCl (Flomax) 0.4 Mg Capsule, 0.8 MG PO QHS, (Reported) Scheduled PRN Polyethylene Glycol 3350 (Miralax) 119 Gm Powder, 17 GM PO DAILY PRN for CONSTIPATION, (Reported) MIX IN 8 OUNCES OF WATER OR JUICE Allergies Coded Allergies: [place] (Verified Allergy, Intermediate, hives, 11/17/19) PACHECO HUDSON MD Feb 13, 2020 10:50
[2020-02-13 12:08] LABS: BASO % 0.4 % (0.0-1.0); EOS # 0.2 10^3/uL (0.0-0.5); EOS % 2.3 % (0.0-3.0); HEMOGLOBIN 9.9 g/dl (13.5-17.5); LYMPH # 1.3 10^3/uL (1.5-5.0); LYMPH % 14.8 % (24.0-44.0); MEAN CORPUSCULAR HEMOGLOBIN 29.5 pg (27.0-33.0); MEAN CORPUSCULAR HGB CONC 30.9 g/dl (32.0-36.5); MEAN CORPUSCULAR VOLUME 95.2 fl (80.0-96.0); MONO # 0.5 10^3/uL (0.0-0.8); MONO % 5.4 % (0.0-5.0); NEUTROPHILS # 6.5 10^3/uL (1.5-8.5); NEUTROPHILS % 76.3 % (36.0-66.0); PLATELET COUNT, AUTOMATED 193 10^3/uL (150-450); RED BLOOD COUNT 3.36 10^6/uL (4.30-6.10); WHITE BLOOD COUNT 8.5 10^3/uL (4.0-10.0)
[2020-02-13 12:30] LABS: CALCIUM LEVEL 8.5 MG/DL (8.8-10.2); CREATININE FOR GFR 2.02 MG/DL (0.70-1.30); MAGNESIUM LEVEL 1.9 MG/DL (1.8-2.4); POTASSIUM SERUM 3.5 MEQ/L (3.5-5.1)
[2020-02-16] MEDS ORDERED: VITAMIN D 50,000 UNITS CAPSULE (ERGOCALCIFEROL 1.25MG) PO SCH (09:00)
== END 2020-02-13 13:06 | disposition home health service (06) | DRG 690 ==
LOC: M PCU 17:53 → M MSPAV 02-12 15:39
PROVIDERS: ADMIT General Practice; ATTEND Internal Medicine
DX: N30.90 Cystitis, unspecified without hematuria (principal); N18.4 Chronic kidney disease, stage 4 (severe); I25.10 Atherosclerotic heart disease of native coronary artery without angina pectoris; E11.22 Type 2 diabetes mellitus with diabetic chronic kidney disease; K21.9 Gastro-esophageal reflux disease without esophagitis; N32.0 Bladder-neck obstruction; C67.9 Malignant neoplasm of bladder, unspecified; I12.9 Hypertensive chronic kidney disease with stage 1 through stage 4 chronic kidney disease, or unspecified chronic kidney disease; F32.9 Major depressive disorder, single episode, unspecified; D64.9 Anemia, unspecified; R13.10 Dysphagia, unspecified; B96.20 Unspecified Escherichia coli [E. coli] as the cause of diseases classified elsewhere; Z95.5 Presence of coronary angioplasty implant and graft; Z79.82 Long term (current) use of aspirin; Z79.84 Long term (current) use of oral hypoglycemic drugs; Z79.899 Other long term (current) drug therapy; Z91.010 Allergy to peanuts; Z91.012 Allergy to eggs; Z91.011 Allergy to milk products; Z91.018 Allergy to other foods; Z96.0 Presence of urogenital implants

== ENCOUNTER → 2020-04-06 | Outpatient (REF) | payer MEDICARE, MEDICAID ==
[~2020-04-06] MED LIST changes: -AMLO10TA5 PO; +AMLO1TAB25 PO; -ASPI81TA85 PO; +ASPI81TA86 PO; +CALC1CAP31 PO; +CEFD300CAP PO; +LISI40TA PO; +PLAV1TAB2 PO
[2020-04-06 20:12] LABS: PERCENT SATURATION 18.4 % (19.7-50.0)
== END ==
LOC: M LAB REF 12:48
PROVIDERS: ATTEND Internal Medicine Nephrology
DX: D50.9 Iron deficiency anemia, unspecified (principal)

== ENCOUNTER → 2020-05-03 | Outpatient (REF) | payer MEDICARE, MEDICAID | LOC: M SMT 12:50 | PROVIDERS: ATTEND Urology | DX: C67.9 Malignant neoplasm of bladder, unspecified (principal) ==

== ENCOUNTER → 2020-08-12 | Outpatient (REF) | payer MEDICARE, MEDICAID ==
[2020-08-14 07:50] LABS: PERCENT SATURATION 18.3 % (19.7-50.0)
== END ==
LOC: M LAB REF 17:13
PROVIDERS: ATTEND Internal Medicine Nephrology
DX: D50.9 Iron deficiency anemia, unspecified (principal)

== ENCOUNTER → 2020-08-31 | Outpatient (REF) | payer MEDICARE, MEDICAID | LOC: M SMT 17:11 | PROVIDERS: ATTEND Urology | DX: C67.9 Malignant neoplasm of bladder, unspecified (principal) ==

== ENCOUNTER → 2020-11-15 | Outpatient (REF) | payer MEDICARE, MEDICAID ==
[~2020-11-15] MED LIST changes: -LISI40TA PO; +LISI40TA4 PO
== END ==
LOC: M SMT 17:29
PROVIDERS: ATTEND Urology
DX: C67.9 Malignant neoplasm of bladder, unspecified (principal)

== ENCOUNTER → 2021-02-10 | Outpatient (REF) | payer MEDICARE, MEDICAID | LOC: M LAB REF 17:17 | PROVIDERS: ATTEND Internal Medicine Nephrology | DX: E83.42 Hypomagnesemia (principal) ==

== ENCOUNTER 2021-04-30 19:50 | Inpatient (IN) | payer MEDICAID, MEDICARE, OTHER ==
[~2021-04-30] VITALS: Ht 167.6 cm; Wt 56.2 kg
[2021-04-30 21:00] VITALS: BP 138/88
--- NOTE | 2021-04-30 22:05 | HPEPDOC ---
General Date of Admission 04/30/21 Date of Service: Apr 30, 2021 Chief Complaint The patient is a 70-year-old male admitted with a reason for visit of Acute Kidney Injury,Cholelithiasis. Source: Patient History of Present Illness Patient is a 70-year-old male with a PMHx of Bladder cancer w/ obstructive uropathy s/p stent (01/26/2020), CAD s/p stent & CABG, DM2, CKD4, GERD who was transferred from [facility] ER after need for MRCP. Patient reports that he has been experiencing abdominal pain since Sunday. He reports poor p.o. few episodes of emesis and a few episodes of diarrhea since Sunday. Pt denies beck, sinus congestion, sore throat, productive cough, sob, palpitations, chest pain,weakness, sensory changes or syncope. He reports that he is diabetic and does take oral antidiabetic medication. Patient reports that he has not eaten anything different and has been around no one else with similar symptoms. Patient reports that he lives alone. He describes abdominal pain 6 out of 10 aching sensation generalized however he does report pain is more notable right umbilical area. Of note, patient CT noted cholelithiasis with biliary dilation up to 11 mm without definitive ductal stone and thus MRCP was advised. Dr. Nixon had been notified regarding patient transfer with recommendations for MRCP and further detailed recommendations to follow. Lab work reviews patient with significant hyperglycemia 467 and upon arrival to [facility] 323. Fortunately, patient without evidence of DKA however creatinine elevated 4.4 with BUN 111. Additionally, lipase 878. Patient will be admitted for further evaluation management presenting concerns Home Medications Scheduled Aripiprazole (Aripiprazole) 5 Mg Tablet, 2.5 MG PO QHS, (Reported) Aspirin (Ecotrin) 81 Mg Tablet., 81 MG PO DAILY, (Reported) Atorvastatin Calcium (Atorvastatin Calcium) 40 Mg Tablet, 40 MG PO DAILY, (Reported) Brimonidine Tartrate/Timolol (Combigan 0.2%-0.5% Eye Drops) 5 Ml Drops, 1 DROP OU BID, (Reported) Carvedilol (Carvedilol) 6.25 Mg Tablet, 6.25 MG PO BID, (Reported) Desvenlafaxine Succinate (Desvenlafaxine Succinate ER) 50 Mg Tab.er.24h, 50 MG PO QHS, (Reported) Ergocalciferol (Vitamin D2) (Drisdol) 1,250 Mcg Capsule, 1,250 MCG PO weekly, (Reported) MON Famotidine (Famotidine) 40 Mg Tablet, 40 MG PO DAILY, (Reported) Ferrous Gluconate (Ferrous Gluconate) 324 Mg Tablet, 324 MG PO BID, (Reported) Glipizide (Glipizide ER) 5 Mg Tab.er.24, 5 MG PO DAILY, (Reported) Hydralazine HCl (Hydralazine HCl) 10 Mg Tablet, 10 MG PO BID, (Reported) Latanoprost (Xalatan) 0.005% 2.5ML Drops, 1 DROP OU QHS, (Reported) Allergies Coded Allergies: [place] (Verified Allergy, Intermediate, hives, 11/17/19) Past Medical History Medical History Bladder cancer w/ obstructive uropathy s/p stent (01/26/2020), CAD s/p stent & CABG, DM2, CKD4, GERD, heparin-induced thrombocytopenia Surgical History Bladder tumor resection December 2019, left ureteral stent January 2020, cardiac stent, CABG Family History Significant Family History: No pertinent family hx Social History * Smoker: Denies Alcohol: Denies (Patient reports none none 50) Drugs: denies Recent Travel/Sick Contacts: Denies: Recent travel, Recent sick contacts Psychosocial History: No pertinent psych hx Patient reports he lives alone A-FIB/CHADSVASC A-FIB History Current/History of A-Fib/PAF?: No Current PO Anticoag Therapy: No Review of Systems Constitutional: Denies: Chills, Fever, Night Sweats Eyes: Denies: Pain, Vision change ENT: Denies: Head Aches, Ear Pain, Dysphagia Skin: Denies: Rash, Lesions, Breakdown Pulmonary: Denies: Dyspnea, Cough Cardiovascular: Denies: Chest Pain, Palpitations, Orthopnea, Paroxysmal Noc. Dyspnea, Lt Headedness Gastrointestinal: Reports: Nausea, Vomiting, Abdominal Pain, Diarrhea Genitourinary: Denies: Dysuria, Frequency, Incontinence, Retention Hematologic: Denies: Bruising, Bleeding Excessively Musculoskeletal: Denies: Neck Pain, Back Pain, Joint Pain, Muscle Pain, Spasms Neurological: Denies: Weakness, Numbness, Change in speech, Confusion Psych: Reports: Mood Normal; Denies: Depression, Memory Issues Physical Examination General Exam: Positive: Alert, No Acute Distress Eye Exam: Positive: PERRLA, Conjunctiva & lids normal, EOMI; Negative: Sclera icteric ENT Exam: Positive: Atraumatic, Mucous membr. moist/pink, Pharynx Normal Neck Exam: Positive: Supple; Negative: JVD, thyromegaly Chest Exam: Positive: Clear to auscultation, Normal air movement Heart Exam: Positive: Rate Normal, Regular Rhythm, Normal S1, Normal S2; Negative: Murmurs, Rubs Telemetry: Positive: No significant arrhythmia Abdomen Exam: Positive: Normal bowel sounds, Soft, Tenderness (Mild tenderness right umbilical quadrant); Negative: Hepatospenomegaly Extremity Exam: Positive: Normal pulses; Negative: Clubbing, Cyanosis, Edema Skin Exam: Positive: Nl turgor and temperature; Negative: Breakdown, Lesion Neuro Exam: Positive: Normal Gait, Normal Speech, Cranial Nerves 3-12 NL, Reflexes 2+ Psych Exam: Positive: Mental status NL, Mood NL, Oriented x 3 Vital Signs T 97.3 Fahrenheit, pulse 63, respiratory rate 18, 93% SPO2 room air, 138/80 Assessment/Plan 1. Abdominal pain 2/2 choledocholithiasis: Lipase elevated 878, concern for pancreatitis although LFTs without elevation. -MRCP -Symptom management/supportive careanalgesics and antiemetics -A.m. labs -Appreciate GI consult and further recommendations with MRCP read 2. PAM on CKD: cr 2 to 4.4. In setting of poor p.o. intake and GI losses -Monitor fluid balance, I's and O's, urinary output -Hydrate with consideration given no recent echo on file. -Avoid nephrotoxins as able -A.m. lab -Consider nephrology consult pending patient response 3. Hyperglycemia in patient with diabetes: Patient takes glipizide at home, will hold presently given patient with poor p.o. intake -Check A1c -Monitor patient blood glucose ACHS. Sliding scale insulin. *Should patient require to be strict n.p.o. pending MRCP read will opt for dextrose fluid and every Accu-Cheks every 6. -A.m. labs. 4. ?HFrEF: Patient reports in the past he has taken Lasix. He denies history of CHF, however has had significant cardiac history including ID and CABG. -Plan to monitor fluid balance and hydrate with consideration given above. Patient appears dry on exam. -Check BNP -Consider echo. 5. History of bladder cancer: Continue home medications tamsulosin and Finasteride 6. HTN: Monitor blood pressure in setting of poor p.o. and GI losses. -Continue home amlodipine and Carvedilol with holding parameters 7. CAD with history of CABG and Stent: - Denies chest pain, shortness of breath or palpitations -Continue home medications ASA and Atorvastatin 8. HDL: Atorvastatin 9. Depression: Pristiq 10. GI prophylaxis: Famotidine DVT prophylaxis: TEDs/Sequentials *of note patient with history of heparin- induced thrombocytopenia upon chart review CODE STATUS: Full Disposition: Home pending clinical improvement; anticipate 2 night stay Plan / VTE VTE Prophylaxis Ordered?: Yes CHARITO SYLVESTER NP Apr 30, 2021 21:57
[2021-04-30] MEDS ORDERED: NS 1,000 ML IV SCH (22:55)
[2021-04-30] MEDS ORDERED: GLUCAGON INJ 1MG VIAL SC PRN (22:55)
[2021-04-30] MEDS ORDERED: MORPHINE 2 MG/ML 1ML VIAL (J2270) IV PRN (22:55)
[2021-04-30] MEDS ORDERED: DEXTROSE 50% 50 ML SYRINGE IV PRN (22:55)
[2021-04-30] MEDS ORDERED: PERCOCET 5MG/325MG TAB PO PRN (22:55)
[2021-04-30] MEDS ORDERED: ACETAMINOPHEN TAB 650MG DOSE (2X325MG) PO PRN (22:55)
[2021-04-30] MEDS ORDERED: GLUCOSE 4GM CHEW TABLET PO PRN (22:55)
[2021-04-30] MEDS ORDERED: ONDANSETRON 4MG/2ML VIAL IV PRN (22:55)
[2021-04-30] MEDS: HumaLOG INSULIN (NovoLOG) PER UNIT SC SCH (23:28)
[2021-04-30] MEDS ORDERED: HYDR10TAB PO (23:31)
[2021-04-30] MEDS ORDERED: FERR32TA PO (23:31)
[2021-04-30] MEDS ORDERED: GLIP5TAB20 PO (23:31)
[2021-04-30] MEDS ORDERED: ECOT81TA5 PO (23:31)
[2021-04-30] MEDS ORDERED: DESV50TA3 PO (23:31)
[2021-04-30] MEDS ORDERED: HOME MED LIST COMPLETE! XX SCH (23:35)
--- NOTE | 2021-05-01 01:04 | REPVR ---
PROCEDURE INFORMATION: Exam: MR Abdomen Without Contrast, Biliary System Exam date and time: 04/30/2021 12:08 AM Age: 70 years old Clinical indication: Abdominal pain; Biliary duct dilation TECHNIQUE: Imaging protocol: MR of the abdomen without contrast. Exam focused on the biliary system and pancreatic ducts. Routine 3D-MRCP images were acquired and processed without radiologist supervision. COMPARISON: CT ABD PELVIS W/O CONTRAST 02/11/2020 10:10 AM FINDINGS: Limitations: Limited by motion artifact. Liver: No gross masses. Gallbladder and bile ducts: Severely limited secondary to motion. Multiple small stones in the gallbladder. Gallbladder is distended. No gallbladder wall thickening. CBD measures 3 mm in diameter. No definite biliary duct stone. Pancreas: Unremarkable. No ductal dilation. Kidneys and ureters: No hydronephrosis bilaterally. T2 circumscribed hypodense hyperdense lesion in the upper pole right kidney measuring 7 mm. Nonspecific mild perinephric edema bilaterally. Intraperitoneal space: No fluid collection. IMPRESSION: 1. Severely limited by motion. 2. Cholelithiasis without evidence of acute cholecystitis. 3. No biliary ductal dilatation. 4. T2-hyperintense lesion in the upper pole of the right kidney. Suspect renal cyst. No follow-up is necessary. COMMENTS: Consistent with the [employer]'s Incidental Findings Committee white paper (J Am Alvarez Radiol 2018): Any incidental renal lesion less than 1 cm or classified as too small to characterize, or any incidental cystic renal lesion characterized as simple-appearing, is likely benign. No follow-up imaging is recommended for these lesions per consensus recommendations based on imaging criteria. Electronically signed by: Paola Rubio On 05/01/2021 01:04:11 AM
[2021-05-01] MEDS: BRIMONIDINE 0.15% OPHTH SOLN 5 ML OU SCH ×3 (01:48→22:46)
[2021-05-01] MEDS: LATANOPROST 0.005% OPHTH SOLN 2.5 ML OU SCH ×2 (01:48→10:35)
[2021-05-01] MEDS: DESVENLAFAXINE ER 50 MG TABLET (PRISTIQ) PO SCH ×2 (01:48→22:45)
[2021-05-01] MEDS: CARVedilol 6.25 MG TAB PO SCH ×3 (01:50→22:45)
[2021-05-01] MEDS: FERROUS GLUCONATE 324 MG TAB PO SCH ×3 (01:51→22:45)
[2021-05-01] MEDS: **hydrALAZINE** 10 MG TAB PO SCH ×3 (01:51→22:43)
[2021-05-01 06:11] LABS: BASO % 0.3 % (0.0-1.0); EOS # 0.1 10^3/uL (0.0-0.5); EOS % 1.1 % (0.0-3.0); HEMATOCRIT 35.2 % (42.0-52.0); HEMOGLOBIN 11.4 g/dl (13.5-17.5); LYMPH # 1.1 10^3/uL (1.5-5.0); LYMPH % 15.3 % (24.0-44.0); MEAN CORPUSCULAR HEMOGLOBIN 30.2 pg (27.0-33.0); MEAN CORPUSCULAR HGB CONC 32.4 g/dl (32.0-36.5); MEAN CORPUSCULAR VOLUME 93.1 fl (80.0-96.0); MONO # 0.5 10^3/uL (0.0-0.8); MONO % 6.9 % (2.0-8.0); NEUTROPHILS # 5.4 10^3/uL (1.5-8.5); NEUTROPHILS % 75.7 % (36.0-66.0); PLATELET COUNT, AUTOMATED 156 10^3/uL (150-450); RED BLOOD COUNT 3.78 10^6/uL (4.30-6.10); WHITE BLOOD COUNT 7.1 10^3/uL (4.0-10.0)
[2021-05-01 06:28] LABS: HEMOGLOBIN A1c 8.9 %
[2021-05-01 06:34] LABS: CALCIUM LEVEL 8.6 MG/DL (8.8-10.2); CREATININE FOR GFR 4.03 MG/DL (0.70-1.30); GLOMERULAR FILTRATION RATE 15.7 (>42); MAGNESIUM LEVEL 2.7 MG/DL (1.8-2.4); POTASSIUM SERUM 3.8 MEQ/L (3.5-5.1)
[2021-05-01 06:45] VITALS: BP 142/86
[2021-05-01 06:58] LABS: BILIRUBIN,DIRECT 0.2 MG/DL (0.0-0.2); BILIRUBIN,TOTAL 0.8 MG/DL (0.2-1.0); TOTAL PROTEIN 5.7 GM/DL (6.4-8.2)
--- NOTE | 2021-05-01 08:17 | ECGEPIP ---
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
--- NOTE | 2021-05-01 09:00 | REP ---
INDICATION: Elevated BNP. COMPARISON: 02/10/2020 FINDINGS: The technique utilized in obtaining the radiograph has magnified the cardiac silhouette and accentuated the interstitial markings. Cardiomediastinal silhouette is unchanged. Note is again made of previous median sternotomy. Stable appearing fibrotic changes are seen in the left lower lobe. Lung caicedo are otherwise clear and stable. The pleural angles are sharp. There is no change in the osseous structures. IMPRESSION: Mild cardiomegaly accentuated by technique. There is no evidence of acute cardiopulmonary disease. <Electronically signed by Kaushal Perez > 05/01/21 [id number]
[2021-05-01 09:27] LABS: SODIUM,RANDOM URINE 38 MEQ/L
--- NOTE | 2021-05-01 10:21 | REP ---
INDICATION: PAM on CKD3. COMPARISON: No prior renal ultrasound. Prior abdominal MRI showed a right renal cyst. TECHNIQUE: Real-time sonographic evaluation of the kidneys with Doppler FINDINGS: Multiple ultrasonographic images of the right kidney show the right kidney to measure 8.4 x 4 x 4.3 cm. The renal cortical echotexture is slightly increased. There are no masses. There is good corticomedullary differentiation. There is no hydronephrosis. There are no perinephric fluid collections. Multiple ultrasonographic images of the left kidney show the left kidney to measure 9.6 x 3.5 x 4.5 cm. The renal cortical echotexture is slightly increased. In the interpolar region there is a 1.9 cm sized hypoechoic lesion. There is good corticomedullary differentiation. There is no hydronephrosis. There are no perinephric fluid collections. IMPRESSION: There is a hypoechoic near anechoic lesions seen in the left kidney as described above consistent with the MRI finding. <Electronically signed by Kaushal Perez > 05/01/21 [id number]
[2021-05-01] MEDS: SCOPOLAMINE 1MG TRANSDERMAL PATCH TOP SCH (10:35)
[2021-05-01] MEDS: ASPIRIN 81MG ENTERIC TABLET PO SCH (10:36)
[2021-05-01] MEDS: FAMOTIDINE 20 MG TAB PO SCH (10:36)
[2021-05-01] MEDS: ATORVASTATIN 20 MG TAB PO SCH (10:36)
[2021-05-01] MEDS: HumaLOG INSULIN (NovoLOG) PER UNIT SC SCH ×4 (10:36→22:45)
--- NOTE | 2021-05-01 10:43 | IPNPDOC ---
Text Note Date of Service The patient was seen on 05/01/21. NOTE Subjective: Patient is a 70-year-old male with a PMHx of Bladder CA (w/ obstructive uropathy / stent 01/26/2020), CAD s/p CABG, DM2, CKD4, GERD who is transferred from [facility] after he presented to the emergency room with abdominal pain. While at their ER. He has received a CT scan of his abdomen which revealed possibility of a stone necessitating the need for MRCP. Hence, patient was transferred to [facility] for further evaluation. Patient has received a MRCP scan of his abdomen which has been unrevealing. Patient was seen and examined at the bedside. Currently denies any abdominal pain. Has not experience any nausea, vomiting or diarrhea. Reports that he is able to make urine bladder scans performed at the bedside this morning did not reveal any significant evidence of urinary retention. He denies any chest pain, shortness breath or palpitations. Has not experience any cough. Objective: Vitals (See below) General: Lying in bed, appears comfortable, AAOx3 HEENT: NC, AT CVS: RRR, +S1S2 Lungs: Fair air entry b/l, no wheezing, rales or rhonchi Abdomen: Soft, nondistended and nontender Extremities: Lower show regional reveal any edema, - Calf tenderness Imaging: MRCP 04/30: 1. Severely limited by motion. 2. Cholelithiasis without evidence of acute cholecystitis. 3. No biliary ductal dilatation. 4. T2-hyperintense lesion in the upper pole of the right kidney. Suspect renal cyst. No follow-up is necessary. CXR 05/01: Mild cardiomegaly accentuated by technique. There is no evidence of acute cardiopulmonary disease. Renal US 05/01: There is a hypoechoic near anechoic lesions seen in the left kidney as described above consistent with the MRI finding. Assessment and plan: Abdominal pain - etiology unclear - Currently patient does not report any abdominal pain - Hemodynamically stable and afebrile - Physical does not reveal any abdominal tenderness - Lipase not significantly elevated - MRCP noted above - c/w IV fluid hydration - GI on consultation; appreciate their input PAM on CKD3 - possibly 2/2 pre-renal etiology, - Cr baseline of ~2.0 - Will check urinalysis and urine electrolytes - Renal ultrasound noted above - Will avoid nephrotoxic medications / adjust medication dosing as needed for kidney function - Continue with IV fluid hydration - Nephrology has been called on consultation NIDDM2 with Hyperglycemia - A1c of 8.9 - c/w ISS Diastolic CHF - No evidence of exacerbation - Physical does not reveal any signs of fluid overload - Elevated BNP - Chest x-ray without any evidence of fluid overload (noted above) - Currently not on diuretics - Will check ECHO Bladder cancer (w/ obstructive uropathy / L ureteral stent 01/26/2020) - c/w Tamsulosin and Finasteride - Follows with urology as an outpatient CAD s/p CABG and stent - Denies any CP, SOB, or palpitations - EKG noted; prolonged QTc - c/w ASA, Atorvastatin, Carvedilol HTN - BP well controlled - c/w Carvedilol / Hydralazine with hold parameters DLP - c/w Atorvastatin Depression - c/w Desvenlafaxine - Will hold Aripiprazole (re: Prolonged QTc) GI prophylaxis - c/w Famotidine DVT prophylaxis - c/w TEDs/Sequentials (Hx of KAMI) Disposition: - Pending clinical improvement - Nephrology called on consultation VS,Carlotta, I+O VS, Taylae, I+O Laboratory Tests 05/01/21 05:55 Vital Signs Date Time Temp Pulse Resp B/P (MAP) Pulse Ox O2 Delivery O2 Flow Rate FiO2 05/01/21 06:45 97.5 52 16 142/86 (104) 95 Room Air I&O- Last 24 Hours up to 6 AM 05/01/21 06:00 Intake Total 906 ml Output Total 150 ml Balance 756 ml PACHECO HUDSON MD May 01, 2021 10:43
[2021-05-01] MEDS: KCL 20MEQ IN 0.45NS 1000ML 1,000 ML IV SCH (11:46)
--- NOTE | 2021-05-01 13:39 | CR.PDOC ---
General Date of Consultation: May 01, 2021 (Pt seen at 11:30am) Attending Physician: YAYA BOONE MD Consultation REASON FOR CONSULTATION/CHIEF COMPLAINT: [elevated lipase, dilated CBD and gallstones on CT]. HISTORY OF PRESENT ILLNESS: . 70 yo male with a 7-10 day hx of abdomianl pain and nausea presented to [facility]. he was found to have elevated lipase in the 800-[address] was noted for gallstones in GB, Bile duct dilation up to 11 mm max. no definite Choledocholithiasis. His LFT were normal. OPt was transfered to [facility] for MRCP and GI consultation. The patient this am is comfortably in bed, he has no significant complaints, but I do note that he is a poor historian. he states that his abdominal pain and nausea is much better than it has been for days. No further nausea at this time. ALLERGIES: Please see below. HOME MEDICATIONS: Please see below. PAST MEDICAL HISTORY: gallstones diabetes GERD Hypertension PAST SURGICAL HISTORY: CABG Cataract FAMILY HISTORY: Unknown SOCIAL HISTORY: Tobacco use:[neg] ETOH: [neg] PHYSICAL EXAMINATION: VITAL SIGNS: Please see below. GENERAL APPEARANCE: white male, appears stated age, not toxic, Somnolent but Ox3 HEENT: [normal]. RESPIRATORY: [coarse, no ronchi]. CARDIOVASCULAR: [RRR,S1S2]. ABDOMEN: [Soft, not tender, bowel sounds present. no masses, no ascites. surgical scars in upper abdomen/chest noted. EXTREMITIES: [negetive for edema]. NEUROLOGICAL: [AOx3, sedate, not toxic,moves all extremities equally and bilaterally. ]. LABORATORY DATA: Please see below. ASSESSMENT/PLAN: 1. Gallstones 2. Pancreatitis Pt barbie has/had gallstone pancreatitis, and he likely recently passed a galstone stone spontaneously. Much of the event likely happened at home before he came in to seek ER/medical attention in [place]. At this time his LFT are (already) normal. His lipase has decreased from 800's into the 400's. The pancreatitis is likely mild, as his CT does not show significant edema. His CBD was thought to have been dilated on his initial CT, however on our MRI the duct seems to be 5 mm/normal. (Poor quality MRI noted due to motion). Recommendation: 1) Repeat MRCP 2) Advance diet to low fat diet 3) Would recommend Cholecystectomy Vital Signs/I&O Vital Signs Date Time Temp Pulse Resp B/P (MAP) Pulse Ox O2 Delivery O2 Flow Rate FiO2 05/01/21 10:37 150/88 05/01/21 06:45 97.5 52 16 95 Room Air I&O- Last 24 Hours up to 6 AM 05/01/21 06:00 Intake Total 906 ml Output Total 150 ml Balance 756 ml Laboratory Data Labs 24H Laboratory Tests 2 04/30/21 23:20: Bedside Glucose (Misc Panel) 315H 05/01/21 05:55: Immature Granulocyte % (Auto) 0.7, Neutrophils (%) (Auto) 75.7H, Lymphocytes (%) (Auto) 15.3L, Monocytes (%) (Auto) 6.9, Eosinophils (%) (Auto) 1.1, Basophils (%) (Auto) 0.3, Neutrophils # (Auto) 5.4, Lymphocytes # (Auto) 1.1L, Monocytes # (Auto) 0.5, Eosinophils # (Auto) 0.1, Basophils # (Auto) 0.0, Nucleated Red Bloo d Cells % (auto) 0.0, Anion Gap 7L, Glomerular Filtration Rate 15.7L, Estimated Mean Plasma Glucose 209H, Hemoglobin A1c 8.9, Osmolality 350H, Lactic Acid Level 1.6, Calcium Level 8.6L, Magnesium Level 2.7H, Total Bilirubin 0.8, Direct Bilirubin 0.2, Aspartate Amino Transf (AST/SGOT) 12, Alanine Aminotransferase (ALT/SGPT) 13, Alkaline Phosphatase 78, TJ-Dje-G-Type Natriuretic Peptide 4205H, Total Protein 5.7L, Albumin 3.0L, Albumin/Globulin Ratio 1.1, Triglycerides Level 273H, Lipase 437H 05/01/21 08:42: Urine Color YELLOW, Urine Appearance CLEAR, Urine pH 5.0, Urine Specific [place] 1.015, Urine Protein NEGATIVE, Urine Glucose (UA) 3+H, Urine Ketones NEGATIVE, Urine Blood NEGATIVE, Urine Nitrite NEGATIVE, Urine Bilirubin NEGATIVE, Urine Urobilinogen 0.2, Urine Leukocyte Esterase NEGATIVE, Urine WBC (Auto) 4H, Urine RBC (Auto) 1, Urine Hyaline Casts (Auto) 0, Urine Bacteria (Auto) 1+H, Urine Squamous Epithelial Cells 0, Urine Sperm (Auto) , Urine Random Creatinine 128.0, Urine Random Sodium 38 05/01/21 11:24: Bedside Glucose ([facility] Panel) 344H CBC/BMP Laboratory Tests 05/01/21 05:55 Allergies Coded Allergies: [place] (Verified Allergy, Intermediate, hives, 11/17/19) Home Medications Scheduled Aripiprazole (Aripiprazole) 5 Mg Tablet, 2.5 MG PO QHS, (Reported) Aspirin (Ecotrin) 81 Mg Tablet.dr, 81 MG PO DAILY, (Reported) Atorvastatin Calcium (Atorvastatin Calcium) 40 Mg Tablet, 40 MG PO DAILY, (Reported) Brimonidine Tartrate/Timolol (Combigan 0.2%-0.5% Eye Drops) 5 Ml Drops, 1 DROP OU BID, (Reported) Carvedilol (Carvedilol) 6.25 Mg Tablet, 6.25 MG PO BID, (Reported) Desvenlafaxine Succinate (Desvenlafaxine Succinate ER) 50 Mg Tab.er.24h, 50 MG PO QHS, (Reported) Ergocalciferol (Vitamin D2) (Drisdol) 1,250 Mcg Capsule, 1,250 MCG PO weekly, (Reported) MON Famotidine (Famotidine) 40 Mg Tablet, 40 MG PO DAILY, (Reported) Ferrous Gluconate (Ferrous Gluconate) 324 Mg Tablet, 324 MG PO BID, (Reported) Glipizide (Glipizide ER) 5 Mg Tab.er.24, 5 MG PO DAILY, (Reported) Hydralazine HCl (Hydralazine HCl) 10 Mg Tablet, 10 MG PO BID, (Reported) Latanoprost (Xalatan) 0.005% 2.5ML Drops, 1 DROP OU QHS, (Reported) YAYA BOONE MD May 01, 2021 13:39
[2021-05-01 14:00] VITALS: BP 149/84
[2021-05-01 14:05] LABS: MB/CK RELATIVE INDEX 7.14 (< OR =4); TROPONIN I 0.09 NG/ML (< 0.10)
[2021-05-01 22:00] VITALS: BP 127/58
--- NOTE | 2021-05-01 23:14 | CR ---
NEPHROLOGY CONSULTATION DATE: 05/01/2021 REQUESTING PHYSICIAN: Dr. Janelle Alaniz CONSULTING PHYSICIAN: Dr. Anaya Hurtado REASON FOR CONSULTATION: Management of acute renal failure. CHIEF COMPLAINT: The patient presented from [facility] on April 30, 2021 with possible cholelithiasis and acute kidney injury. HISTORY OF PRESENT ILLNESS: Ramesh Laurent is a 70-year-old male with a past medical history of cancer of the bladder, with a history of obstructive uropathy, status post left ureteral stent placement on January 26, 2020. Not sure if the stent is still there. History of chronic kidney disease stage 3 to early stage 4 with a baseline creatinine of 2, as per previous records. He follows up with Dr. Wood in the Nephrology office. Multiple other comorbidities as mentioned below. He was transferred from [facility] for possible need for MRCP. He was experiencing pain for the last one week. He presented to the hospital over there with poor p.o. intake, episodes of vomiting and diarrhea. Initial CAT scan showed cholelithiasis with biliary dilatation. However when MRCP was done, it was not showing any evidence of obstruction. There was cholelithiasis without cholecystitis and MRI was limited because of severe motion. The patient's creatinine on arrival was 4, so Nephrology Service was called to further help in the management of this patient. I saw and evaluated the patient today morning at the bedside. He does report mild abdominal pain. Otherwise in no distress at the time when I saw him. PAST MEDICAL HISTORY: The patient's past medical history is significant for: 1. Bladder cancer with a history of obstructive uropathy, status post left ureteral stent in January 2020. 2. History of coronary artery disease. 3. Diabetes mellitus type 2. 4. Chronic kidney disease stage 3 to early stage 4. 5. Gastroesophageal reflux disease. 6. Heparin induced thrombocytopenia. PAST SURGICAL HISTORY: The patient's past surgical history is significant for: 1. Status post bladder tumor resection in December 2019. 2. Left ureteral stent in January 2020. 3. Cardiac stent and coronary artery bypass grafting. ALLERGIES: He is allergic to chestnuts. FAMILY HISTORY: No significant family history of end-stage renal disease requiring hemodialysis. SOCIAL HISTORY: The patient denies any smoking, illicit drug abuse or alcohol abuse. REVIEW OF SYSTEMS: Constitutional: He reports feeling weak and tired. Eyes: He denies any blurry vision, double vision. ENT: He denies any dysphagia or odynophagia. Cardiovascular: He denies any chest pain or palpitations. Respiratory: He denies any shortness of breath. Gastrointestinal: He reports nausea, vomiting and abdominal pain. Genitourinary: He denies any dysuria or retention. Musculoskeletal: He denies any muscle aches and pains. Skin: He denies any rashes or ulcers. Hematological/Oncological: He denies any easy bleeding or bruising. PAID INTERNSHIP: He denies any weakness or numbness. All other review of systems is negative. PHYSICAL EXAMINATION: GENERAL APPEARANCE: The patient is awake, alert, oriented x2, laying in bed. VITAL SIGNS: Temperature is 97.1 degrees Fahrenheit, blood pressure 149/84, pulse is 60, respiratory rate of 17, saturating 95% on room air. HEAD AND NECK: Extraocular muscles intact. Pupils are equally round and reactive to light. Mucous membranes are moist. Neck is supple. There is no jugular venous distention. CARDIOVASCULAR: S1, S2, regular rate. EXTREMITIES: No edema of the bilateral lower extremities. RESPIRATORY: No rales or rhonchi bilaterally currently. ABDOMEN: Soft, mild tenderness to deep palpation and right renal fossa and right sided CVA tenderness. Bladder is not palpable. MUSCULOSKELETAL: No clubbing, no cyanosis. Pulses are 2+. PAID INTERNSHIP: No focal deficits. Power is 5/5 in all extremities. LAB REVIEW: CBC showed a WBC of 7.1, hemoglobin 11.4, platelet count 156. Urinalysis showed 3+ leukocytes, 4 WBCs, negative protein. BMP showed sodium of 146, potassium 3.8, chloride 108, bicarbonate 31, BUN 104, creatinine is 4. A1c is 8.9. Osmolarity is 350, lactic acid 1.6, magnesium 2.7. Albumin is 3. IMAGING DATA: A renal ultrasound was done which showed right kidney was 8.4 by 4.3 cm. It is mildly atrophic. No masses, no hydronephrosis. Left kidney is 9.6 cm. Renal cortical echotexture is increased. No hydronephrosis was noted. I looked at the images myself, and in the bladder scans, I see the ureteral jet on the right side. There is no picture of ureteral jet on the left side. CURRENT INPATIENT MEDICATIONS: The patient's medications were all reviewed by myself. He was getting normal saline which has been stopped. I have started the patient on KCL 20 mEq and half normal saline at 60 mL an hour. Aspirin 81 mg daily, Lipitor 40 mg p.o. daily, Coreg 6.25 mg p.o. twice daily, Desvenlafaxine 50 mg p.o. daily, Pepcid 10 mg daily, iron tablet 324 mg p.o. twice daily, Hydralazine 10 mg p.o. twice daily, insulin Lispro sliding scale, Morphine p.r.n. for pain, Percocet p.r.n. for pain and Scopolamine one mg topical q. 72 hourly. ASSESSMENT AND PLAN: 1. Acute oliguric renal failure - The patient has a history of left sided ureteral obstruction. Although the imaging does not show any obstruction on the left side or hydronephrosis, but I do not see any ureteral jets on the left side. Right kidney has mild atrophy. It is likely that the patient might be dehydrated because of all the vomiting and abdominal pain that he was having. I do not see any evidence of hematuria, proteinuria or any evidence of acute glomerulonephritis. I am going to try to hydrate the patient with half normal saline. I tried to place a Arrington catheter but the patient refused a Arrington catheter and I have requested the nursing staff to monitor the urine output strictly. The potassium level is normal and the bicarbonate level is within the acceptable range. There is no urgent need of hemodialysis at this time. 2. Hypertension - continue current dose of Coreg. Avoid use of patricia inhibitors or angiotensin receptor blockers. Continue current dose of Hydralazine as well. 3. Heart failure with a reduced ejection fraction - BNP is slightly elevated. However there is no evidence of fluid overload at this time. He is going to get gentle fluid hydration for a total of 2 liters. Avoid diuretics at this time. 4. History of bladder cancer - continue Flomax and Finasteride. No evidence of a significant tumor on the bladder ultrasound at this time. However I still suspect there might be some obstruction on the left side because I do not see ureteral jets on the left side in imaging. 5. Diabetes mellitus type 2 avoid use of Metformin at this time. Okay to continue insulin sliding scale. He is not a candidate of patricia inhibitors because of advanced chronic kidney disease. Thank you for involving me in the care of this patient. I shall be happy to follow the patient along with you tomorrow morning.
[2021-05-02 00:51] LABS: OSMOLALITY URINE 588 MOSM/KG (50-1400)
[2021-05-02] MEDS: KCL 20MEQ IN 0.45NS 1000ML 1,000 ML IV SCH (04:02)
[2021-05-02 06:00] VITALS: BP 143/89
[2021-05-02 06:43] LABS: BASO % 0.2 % (0.0-1.0); EOS # 0.1 10^3/uL (0.0-0.5); EOS % 1.4 % (0.0-3.0); HEMOGLOBIN 11.1 g/dl (13.5-17.5); LYMPH # 1.3 10^3/uL (1.5-5.0); LYMPH % 19.8 % (24.0-44.0); MEAN CORPUSCULAR HEMOGLOBIN 30.4 pg (27.0-33.0); MEAN CORPUSCULAR HGB CONC 32.6 g/dl (32.0-36.5); MEAN CORPUSCULAR VOLUME 93.2 fl (80.0-96.0); MONO # 0.5 10^3/uL (0.0-0.8); MONO % 7.2 % (2.0-8.0); NEUTROPHILS # 4.6 10^3/uL (1.5-8.5); NEUTROPHILS % 70.8 % (36.0-66.0); PLATELET COUNT, AUTOMATED 132 10^3/uL (150-450); RED BLOOD COUNT 3.65 10^6/uL (4.30-6.10); WHITE BLOOD COUNT 6.4 10^3/uL (4.0-10.0)
[2021-05-02 07:08] LABS: ALBUMIN 2.7 GM/DL (3.2-5.2); CALCIUM LEVEL 8.4 MG/DL (8.8-10.2); CREATININE FOR GFR 3.21 MG/DL (0.70-1.30); GLOMERULAR FILTRATION RATE 20.5 (>42); MAGNESIUM LEVEL 2.3 MG/DL (1.8-2.4); PHOSPHORUS LEVEL 3.3 MG/DL (2.5-4.9); POTASSIUM SERUM 4.2 MEQ/L (3.5-5.1)
[2021-05-02] MEDS: FAMOTIDINE 20 MG TAB PO SCH (08:48)
[2021-05-02] MEDS: HumaLOG INSULIN (NovoLOG) PER UNIT SC SCH ×4 (08:48→20:52)
[2021-05-02] MEDS: ASPIRIN 81MG ENTERIC TABLET PO SCH (08:48)
[2021-05-02] MEDS: ATORVASTATIN 20 MG TAB PO SCH (08:49)
[2021-05-02] MEDS: FERROUS GLUCONATE 324 MG TAB PO SCH ×2 (08:53→20:51)
[2021-05-02] MEDS: **hydrALAZINE** 10 MG TAB PO SCH ×2 (08:53→20:51)
[2021-05-02] MEDS: BRIMONIDINE 0.15% OPHTH SOLN 5 ML OU SCH ×2 (08:55→20:52)
[2021-05-02] MEDS: CARVedilol 6.25 MG TAB PO SCH ×3 (08:55→20:51)
[2021-05-02] MEDS ORDERED: D5W 1,000 ML IV SCH (11:10)
[2021-05-02] MEDS: SCOPOLAMINE 1MG TRANSDERMAL PATCH TOP SCH (13:17)
[2021-05-02 14:00] VITALS: BP 178/88
[2021-05-02 14:21] LABS: BILIRUBIN,DIRECT 0.2 MG/DL (0.0-0.2); BILIRUBIN,TOTAL 0.9 MG/DL (0.2-1.0); TOTAL PROTEIN 5.4 GM/DL (6.4-8.2)
[2021-05-02 14:45] VITALS: BP 178/88
--- NOTE | 2021-05-02 18:08 | IPN ---
PROGRESS NOTE DATE: 05/02/2021 SUBJECTIVE: Mr. Chandler is seen and examined this morning at the bedside. He tells me he is very nauseous and feels sick to his stomach and complains of ongoing abdominal pain and patient was clutching the basin at the time of my visit and was bringing up liquid vomitus. He continues on IV fluid and laboratory studies show mild hypernatremia and improvement in renal function. Vital signs: Temperature 98.1, pulse 62, respiratory rate 16, blood pressure 178/88, saturating 97% on room air. Intake yesterday was 2.4 liters, urine output yesterday was 650 mL, weight in the bed scale today is not recorded. General: Patient is seen awake, alert, oriented, and in mild gastrointestinal distress, visibly nauseous and vomiting liquid emesis and holding the basis. Extraocular muscles are intact. Neck is supple. Jugular veins are not elevated. Heart sounds are regular, S1, S2. Lungs show symmetric air entry, there is no crackle, rale, or rhonchus. Abdomen is soft and tender in the epigastrium. There are bowel sounds. Extremities do not show any edema nor cyanosis. LABORATORY STUDIES: Show sodium 147, potassium 4.2, chloride 113, BUN 87, creatinine 3.2, glucose 173, phosphorous 3.3, magnesium 2.3, BNP 4200, albumin 2.7, hemoglobin 11.1, platelet 132. INPATIENT MEDICATIONS: Patient was on half-normal saline with potassium chloride. I did stop this and switched him to dextrose 5% in water (D5W) at 60 mL/hour. He continues on aspirin, statin, carvedilol, Pristiq, Pepcid, ferrous gluconate, hydralazine 10 mg by mouth twice a day, insulin. PROBLEMS: 1. Hypernatremia. Patient's sodium on the latest labs is 147 with a blood urea nitrogen of 87. Patient is hyperosmolar. His serum osmolality yesterday was 350. He has a free water deficit of 1.8 liters. I am stopping the half-normal saline and switching him over to dextrose 5% in water (D5W) at 60 mL/hour. The patient is visibly nauseous and having emesis and nursing staff has not recorded any significant oral intake today. He will need hypotonic IV fluid at this time. 2. Acute kidney injury superimposed on chronic kidney disease (CKD) stage 3b. Patient has a baseline creatinine of around 2.1. His acute kidney injury is likely in the setting of nausea, abdominal pain, and poor oral intake. He did have a renal ultrasound done yesterday that was negative for obstructive uropathy. I do note an atrophic appearance of the right kidney. His renal function is improving with hypotonic fluid and I would continue the same for now. 3. Diastolic congestive heart failure, chronic. Patient is not on any chronic diuretics and at the present time he has a significant free water deficit and I am continuing him on hypotonic fluids. He is saturating well on room air. We will keep a close eye on his volume status. 4. Abdominal pain, nausea, and poor oral intake. As per primary team and gastroenterology is following as well. Nursing staff is recording minimal oral intake. Patient has a significant free water deficit. He is hyperosmolar. We are continuing him on hypotonic IV fluids. 5. Hypertension. Blood pressures were previously well controlled but did spike up this morning while the patient was visibly nauseous and vomiting. I am stopping the half-normal saline and switching to dextrose 5% in water (D5W). He does not need any sort of saline administration (salt). He is on carvedilol and hydralazine. He is not suitable for any angiotensin-converting enzyme (ABRAHAM), ARB, or diuretic at this time.
--- NOTE | 2021-05-02 18:52 | IPNPDOC ---
Date Seen The patient was seen on 05/02/21. Progress Note SUBJECTIVE: Patient is a 70-year-old male with a PMHx of Bladder CA (w/ obstructive uropathy / stent 01/26/2020), CAD s/p CABG, DM2, CKD4, GERD who is transferred from [facility] after he presented to the emergency room with abdominal pain. While at their ER. He has received a CT scan of his abdomen which revealed possibility of a stone necessitating the need for MRCP. Hence, patient was transferred to [facility] for further evaluation, an MRCP which was unrevealing. Patient was examined at bedside Review of systems: Constitutional: Denies fever, chills, night sweats; and endorses weight loss Respiratory: Denies cough, shortness of breath, flank pain Cardiac: Denies chest pain, palpitations Gastrointestinal: Reports abdominal pain below his bellybutton and left lower quadrant, decreased appetite since last week Genitourinary: Denies dysuria, hematuria Endocrine: Reports decreased thirst OBJECTIVE PHYSICAL EXAMINATION: VITAL SIGNS: Please see below. GENERAL: 70-year-old male, resting in bed, no acute distress HEENT: Head normocephalic atraumatic CARDIOVASCULAR: Regular rate and rhythm, distant heart sounds; no murmurs, no rubs, no gallop. RESPIRATORY: Decreased tidal volume with moderate respiratory effort ABDOMINAL: Hypoactive bowel sounds, tender to palpation in region below bellybutton and left lower quadrant; negative Raphael sign LABORATORY DATA, IMAGING STUDIES, MICROBIOLOGY: Please see below. DVT prophylaxis ordered?: Teds and sequentials ASSESSMENT AND PLAN: Abdominal pain - etiology unclear - Patient reported lower abdominal pain below his bellybutton left lower quadrant - Hemodynamically stable and afebrile - Lipase not significantly elevated - c/w IV fluid hydration - GI on consultation; appreciate their input; recommended cholcystectomy -Dr. Ramirez with general surgery has been consulted and is input is greatly appreciated PAM on CKD3 - possibly 2/2 pre-renal etiology, - Cr trending down and now 3.21 toward baseline of around 2.1 - Will check urinalysis and urine electrolytes - Will avoid nephrotoxic medications / adjust medication dosing as needed for kidney function - Continue with IV fluid hydration - Nephrology has seen the patient: Switch patient to D5W and hypertonic saline NIDDM2 with Hyperglycemia - A1c of 8.9 - c/w ISS Diastolic CHF - No evidence of exacerbation - Physical does not reveal any signs of fluid overload - Elevated BNP - Chest x-ray without any evidence of fluid overload (noted above) - Currently not on diuretics - ECHO results pending Bladder cancer (w/ obstructive uropathy / L ureteral stent 01/26/2020) - c/w Tamsulosin and Finasteride - Follows with urology as an outpatient CAD s/p CABG and stent - Denies any CP, SOB, or palpitations - EKG noted; prolonged QTc - c/w ASA, Atorvastatin, Carvedilol HTN - BP well controlled - c/w Carvedilol / Hydralazine with hold parameters DLP - c/w Atorvastatin Depression - c/w Desvenlafaxine - Will hold Aripiprazole (re: Prolonged QTc) GI prophylaxis - c/w Famotidine DVT prophylaxis - c/w TEDs/Sequentials (Hx of KAMI) Disposition: - Pending clinical improvement - Nephrology called on consultation DISPOSITION: Pending clinical improvement. [facility] Vital Signs/I&O Vital Signs Date Time Temp Pulse Resp B/P (MAP) Pulse Ox O2 Delivery O2 Flow Rate FiO2 05/02/21 14:45 178/88 (118) 05/02/21 14:00 98.1 62 16 97 Room Air I&O- Last 24 Hours up to 6 AM 05/02/21 06:00 Intake Total 1500 ml Output Total 675 ml Balance 825 ml Laboratory Data 24H LABS Laboratory Tests 2 05/01/21 20:45: Bedside Glucose (Misc Panel) 103 05/02/21 06:23: Immature Granulocyte % (Auto) 0.6, Neutrophils (%) (Auto) 70.8H, Lymphocytes (%) (Auto) 19.8L, Monocytes (%) (Auto) 7.2, Eosinophils (%) (Auto) 1.4, Basophils (%) (Auto) 0.2, Neutrophils # (Auto) 4.6, Lymphocytes # (Auto) 1.3L, Monocytes # (Auto) 0.5, Eosinophils # (Auto) 0.1, Basophils # (Auto) 0.0, Nucleated Red Blood Cells % (auto) 0.0, Anion Gap 8, Glomerular Filtration Rate 20.5L, Calcium Level 8.4L, Phosphorus Level 3.3, Magnesium Level 2.3, Total Bilirubin 0.9, Direct Bilirubin 0.2, Aspartate Amino Transf (AST/SGOT) 16, Alanine Aminotransferase (ALT/SGPT) 14, Alkaline Phosphatase 72, Total Protein 5.4L, Albumin 2.7L, Albumin/Globulin Ratio 1.0, Lipase 390 05/02/21 11:54: Bedside Glucose (Misc Panel) 113H 05/02/21 17:22: Bedside Glucose (Misc Panel) 202H CBC/BMP Laboratory Tests 05/02/21 06:23 GME ATTESTATION GME ATTESTATION My faculty preceptor for this patient encounter was physically present during the encounter and was fully available. All aspects of the patient interview, examination, medical decision making process, and medical care plan development were reviewed and approved by the faculty preceptor. The faculty preceptor is aware and concurs with the plan as stated in the body of this note and will att est to such by his/her cosignature. ATTENDING NOTE I, Janelle Alaniz, have independently examined this patient and performed my own physical exam, as well as reviewed the documentation and edited where necessary. I have discussed in detail with the resident / student the findings and plan of treatment as documented by the resident / student and edited their note. I agree with their findings and treatment plan and have edited their documentation. I will continue to follow the patient during this hospital stay. Tristan Bradley DO May 02, 2021 18:52 JANELLE ALANIZ MD May 02, 2021 18:56
[2021-05-02] MEDS: DESVENLAFAXINE ER 50 MG TABLET (PRISTIQ) PO SCH (20:51)
[2021-05-02] MEDS: LATANOPROST 0.005% OPHTH SOLN 2.5 ML OU SCH (20:52)
[2021-05-02 22:00] VITALS: BP 121/53
[2021-05-03 06:00] VITALS: BP 153/66
[2021-05-03 06:26] LABS: BASO % 0.2 % (0.0-1.0); EOS # 0.1 10^3/uL (0.0-0.5); EOS % 1.1 % (0.0-3.0); HEMATOCRIT 31.7 % (42.0-52.0); HEMOGLOBIN 10.5 g/dl (13.5-17.5); LYMPH # 1.2 10^3/uL (1.5-5.0); LYMPH % 21.3 % (24.0-44.0); MEAN CORPUSCULAR HGB CONC 33.1 g/dl (32.0-36.5); MEAN CORPUSCULAR VOLUME 90.6 fl (80.0-96.0); MONO # 0.5 10^3/uL (0.0-0.8); MONO % 8.4 % (2.0-8.0); NEUTROPHILS # 3.7 10^3/uL (1.5-8.5); NEUTROPHILS % 68.4 % (36.0-66.0); PLATELET COUNT, AUTOMATED 135 10^3/uL (150-450); WHITE BLOOD COUNT 5.5 10^3/uL (4.0-10.0)
[2021-05-03 06:48] LABS: CALCIUM LEVEL 7.9 MG/DL (8.8-10.2); CREATININE FOR GFR 2.99 MG/DL (0.70-1.30); GLOMERULAR FILTRATION RATE 22.2 (>42); POTASSIUM SERUM 3.6 MEQ/L (3.5-5.1)
--- NOTE | 2021-05-03 07:26 | ECHO ---
ECHOCARDIOGRAM DATE OF PROCEDURE: 05/02/2021 Age: Gender: M Height: 168 cm Weight: 56 kg REFERRING PHYSICIAN: Janelle Alaniz MD INDICATION: Congestive heart failure. MEASUREMENTS: IVS: 1.0 LV: 5.4 LVPW: 1.0 LA: 3.5 Aorta: 3.3 Left atrial volume index: 35 Mitral E wave velocity is 46; A wave 81 E prime septal: 2.9 E prime lateral: 6.5 FINDINGS: This study is of acceptable technical quality. Patient is in sinus rhythm. Left ventricle is normal size. There are wall motion abnormalities involving the whole inferior wall that is essentially akinetic from its apical to basal segment and also severe hypokinesis of posterior wall. Overall left ventricular systolic function is estimated around 45% to 50%. Right ventricle was relatively poorly visualized but appears grossly normal. Left atrium is moderately enlarged. Right atrium appears normal. Aortic valve is minimally sclerotic but mobility of cusps is preserved. There are also minimal degenerative abnormalities of mitral valve but mobility of leaflet is preserved as well. Tricuspid valve appears normal. Pulmonic valve was not seen. No pericardial effusion is noted. Inferior vena cava was not well seen. Aortic root is normal. Aortic arch and abdominal aorta were poorly visualized. Doppler interrogation of aortic valve reveals no significant stenosis and trivial insufficiency. There is also trace mitral insufficiency and trace tricuspid insufficiency. Unfortunately, the quality of TR jet was not sufficient to determine pulmonary artery pressure. Mitral inflow pattern and tissue Doppler imaging of mitral annulus revealed grade 1 diastolic dysfunction. CONCLUSIONS: 1. Study is of acceptable technical quality, underlying sinus rhythm. 2. Normal left ventricle (LV) size with inferior and posterior wall motion abnormality and overall estimated left ventricular ejection fraction (LVEF) 45% to 50%. Grade 1 diastolic dysfunction. 3. No significant valvular disease. 4. Unable to estimate central venous pressure and pulmonary artery pressure.
[2021-05-03] MEDS: FAMOTIDINE 20 MG TAB PO SCH (08:34)
[2021-05-03] MEDS: BRIMONIDINE 0.15% OPHTH SOLN 5 ML OU SCH ×2 (08:34→21:12)
[2021-05-03] MEDS: ASPIRIN 81MG ENTERIC TABLET PO SCH (08:34)
[2021-05-03] MEDS: FERROUS GLUCONATE 324 MG TAB PO SCH ×2 (08:34→21:11)
[2021-05-03] MEDS: ATORVASTATIN 20 MG TAB PO SCH (08:34)
[2021-05-03] MEDS: HumaLOG INSULIN (NovoLOG) PER UNIT SC SCH ×4 (08:35→21:00)
[2021-05-03] MEDS: **hydrALAZINE** 10 MG TAB PO SCH ×2 (08:36→21:11)
[2021-05-03] MEDS: CARVedilol 6.25 MG TAB PO SCH ×2 (08:36→21:12)
--- NOTE | 2021-05-03 11:02 | IPNPDOC ---
Date Seen The patient was seen on 05/03/21. Progress Note SUBJECTIVE: Patient is a 70-year-old male with presented to the emergency room at [facility] with abdominal pain was subsequently transferred here for further management evaluation History of present illness: Patient is a 70-year-old male with a PMHx of Bladder CA (w/ obstructive uropathy / stent 01/26/2020), CAD s/p CABG, DM2, CKD4, GERD who is transferred from [facility] after he presented to the emergency room with abdominal pain. While at their ER. He has received a CT scan of his abdomen which revealed possibility of a stone necessitating the need for MRCP. Hence, patient was transferred to [facility] for further evaluation, an MRCP which was unrevealing. Events since last encounter: Patient reports improvement in abdominal pain compared to yesterday. Notes that it centered around his lower abdominal quadrants. He reports improvement in his appetite and thirst since yesterday. Still waiting for evaluation for Dr. Ramirez pertaining to whether patient will benefit from an inpatient cholecystectomy or not. Review of systems: Constitutional: Denies fever, chills, night sweats Respiratory: Denies cough, shortness of breath, flank pain Cardiac: Denies chest pain, palpitations Gastrointestinal: Endorses abdominal pain in the lower quadrants below his bellybutton, endorses improvement in appetite, endorses nausea; denies vomiting, diarrhea, constipation, bright red blood per rectum Genitourinary: Denies dysuria, hematuria Endocrine: Reports increased thirst OBJECTIVE PHYSICAL EXAMINATION: VITAL SIGNS: Please see below. GENERAL: Patient is a 57-year-old male, sitting in chair beside bedside, eating breakfast and drinking liquids HEENT: Normocephalic atraumatic, persistent lip smacking throughout exam, no upper teeth and poor dental hygiene and remaining lower teeth CARDIOVASCULAR: Bradycardic, regular rhythm, no murmurs, rubs, or gallops. RESPIRATORY: Clear to auscultation bilaterally. ABDOMINAL: Normoactive bowel sounds, tender to palpation below bellybutton and left and right quadrants EXTREMITIES: No lower extremity swelling appreciated LABORATORY DATA, IMAGING STUDIES, MICROBIOLOGY: Please see below. DVT prophylaxis ordered?: Continue with teds and sequentials ASSESSMENT AND PLAN: This is a 70-year-old male with abdominal pain of unclear etiology after presenting to [facility] with abdominal pain where it was determined that he needed an MRCP. Was transferred to [facility] for that procedure and further evaluation and management. Abdominal pain - etiology unclear - Patient reported lower abdominal pain below his bellybutton and left and lower quadrant - Hemodynamically stable and afebrile - Lipase not significantly elevated - c/w IV fluid hydration - GI on consultation; appreciate their input; recommended cholcystectomy - Dr. Ramirez with general surgery has been consulted and is input is greatly appreciated PAM on CKD3 - possibly 2/2 pre-renal etiology, - Cr trending down and now 3.21 toward baseline of around 2.1 - Will check urinalysis and urine electrolytes - Will avoid nephrotoxic medications / adjust medication dosing as needed for kidney function - Continue with IV fluid hydration - Nephrology has seen the patient: Switch patient to D5W and hypertonic saline NIDDM2 with Hyperglycemia - A1c of 8.9 - c/w ISS Diastolic CHF - No evidence of exacerbation - Physical does not reveal any signs of fluid overload - Elevated BNP - Chest x-ray without any evidence of fluid overload (noted above) - Currently not on diuretics - ECHO results pending Bladder cancer (w/ obstructive uropathy / L ureteral stent 01/26/2020) - c/w Tamsulosin and Finasteride - Follows with urology as an outpatient CAD s/p CABG and stent - Denies any CP, SOB, or palpitations - EKG noted; prolonged QTc - c/w ASA, Atorvastatin, Carvedilol HTN - BP well controlled - c/w Carvedilol / Hydralazine with hold parameters DLP - c/w Atorvastatin Depression - c/w Desvenlafaxine - Will hold Aripiprazole (re: Prolonged QTc) GI prophylaxis - c/w Famotidine DVT prophylaxis - c/w TEDs/Sequentials (Hx of KAMI) Disposition: - Pending clinical improvement - Nephrology called on consultation . GME ATTESTATION My faculty preceptor for this patient encounter was physically present during the encounter and was fully available. All aspects of the patient interview, examination, medical decision making process, and medical care plan development were reviewed and approved by the faculty preceptor. The faculty preceptor is aware and concurs with the plan as stated in the body of this note and will attest to such by his/her cosignature. ATTENDING NOTE I personally examined the patient and discussed his findings, course and management thus far, subspecialty recommendations and surgery's recommendations and I agree with the detailed plan above. It appears at this time, the surgery service would prefer for him to be medically optimized to eventually have an elective lap renata as an outpatient. VS, I&O, 24H, Fishbone Vital Signs/I&O Vital Signs Date Time Temp Pulse Resp B/P (MAP) Pulse Ox O2 Delivery O2 Flow Rate FiO2 05/03/21 08:36 150/66 05/03/21 08:36 56 05/03/21 06:00 97.1 16 96 Room Air I&O- Last 24 Hours up to 6 AM 05/03/21 06:00 Intake Total 1830 ml Output Total 200 ml Balance 1630 ml Laboratory Data 24H LABS Laboratory Tests 2 05/02/21 11:54: Bedside Glucose (Misc Panel) 113H 05/02/21 17:22: Bedside Glucose (Misc Panel) 202H 05/02/21 20:36: Bedside Glucose (Misc Panel) 218H 05/03/21 05:57: Immature Granulocyte % (Auto) 0.6, Neutrophils (%) (Auto) 68.4H, Lymphocytes (%) (Auto) 21.3L, Monocytes (%) (Auto) 8.4H, Eosinophils (%) (Auto) 1.1, Basophils (%) (Auto) 0.2, Neutrophils # (Auto) 3.7, Lymphocytes # (Auto) 1.2L, Monocytes # (Auto) 0.5, Eosinophils # (Auto) 0.1, Basophils # (Auto) 0.0, Nucleated Red Blood Cells % (auto) 0.0, Anion Gap 6L, Glomerular Filtration Rate 22.2L, Calcium Level 7.9L CBC/BMP Laboratory Tests 05/03/21 05:57 Tristan Bradley DO May 03, 2021 11:01 ARISTIDES JAIME MD May 03, 2021 21:15
--- NOTE | 2021-05-03 11:47 | CR ---
CONSULTATION DATE: 05/02/2021 HISTORY OF PRESENT ILLNESS: The patient is a 70-year-old male with significantly advanced renal insufficiency, history of bladder cancer and obstructive uropathy, who essentially presented after nausea and vomiting for about a week. He did have an elevated lipase and slightly dilated common bile duct on CT scan with some gallstones and thus was transferred here for MRCP, possible ERCP should this be necessary. However, with follow up labs and follow up studies the MRCP revealed no significant inflammatory changes within the gallbladder, no dilated ducts and no choledocholithiasis. The patient's lipase was slightly elevated on admission. However, the patient on admission to [facility] had an elevated BUN of 111 and creatinine of 4.4. He states that he was sick for about a week before he came into the emergency room. MEDICAL HISTORY: Significant for: 1. History of bladder cancer with obstructive uropathy. 2. History of coronary artery disease, status post stenting. 3. History of CABG. 4. History of diabetes mellitus. 5. Chronic kidney disease. 6. Gastroesophageal reflux disease. 7. Heparin-induced thrombocytopenia. MEDICATIONS: 1. Aripiprazole. 2. Ecotrin. 3. Atorvastatin. 4. Combigan eyedrops. 5. Carvedilol. 6. Desvenlafaxine Succinate. 7. Ergocalciferol. 8. Vitamin D2. 9. Pepcid. 10. Iron. 11. Glipizide. 12. Hydralazine. 13. Xalatan eyedrops. PHYSICAL EXAMINATION: GENERAL: Somewhat contentious individual who is not all that interested in conversing at this time, is not apparently in any distress. HEENT: Unremarkable. LUNGS: Clear anteriorly. HEART: Regular. ABDOMEN: Soft, nondistended, nontender. IMPRESSION/PLAN: The patient has evidence of elevated lipase and the etiology of this easily could have been an episode of gallstone pancreatitis preadmission, although the lipase itself could have been elevated secondary to the renal insufficiency and nausea and vomiting and dehydration that he had. At this point I feel that given his creatinine is still elevated and not back to baseline, more important at this time is to get him optimized from a medical standpoint and in doing so it is probably reasonable to have him continue his optimization over the ensuing hospitalization and then after discharge he can follow up with me as an outpatient and we will plan on early intervention with laparoscopic cholecystectomy once all of his consultants have agreed that no further optimization is necessary. Obviously, if there are concerns that his risk is significantly high for operative intervention, proceeding with an ERCP with papillotomy would forego that risk to some extent and opening up the ampulla would thus prevent additional episodes of gallstone pancreatitis. At this point we will see how he is doing in the morning. If he looks as though he is improving clinically I would recommend optimization and follow up as an outpatient.
--- NOTE | 2021-05-03 12:13 | IPNPDOC ---
Text Note Date of Service The patient was seen on 05/03/21. NOTE General surgery. Dr Ramirez. The patient is a 70-year-old man transferred from outside hospital for MRCP related to elevated lipase and slightly dilated common bile duct on CT. MRCP indicated no significant inflammatory changes within the gallbladder, no dilated ducts, no choledocholithiasis. Lipase 05/02 is noted to be 390. This morning, the patient states he is not having abdominal pain. Denies nausea or vomiting. Tolerating low-fat diet. Afebrile. VSS. MMM Lungs clear to auscultation S1-S2 regular rate rhythm Abdomen is soft, nondistended, no tenderness noted on exam. Assessment/plan Possible episode of gallstone pancreatitis now resolving/resolved. The patient is reviewed and examined as per Dr Ramirez. The patient denies abdominal pain. Lipase 05/02/2021 is noted to be 390. The patient is tolerating low-fat diet. Continue with medical optimization. Once renal function returns to baseline, consider outpatient laparoscopic cholecystectomy. VS,Fishbone, I+O VS, Fishbone, I+O Laboratory Tests 05/03/21 05:57 Vital Signs Date Time Temp Pulse Resp B/P (MAP) Pulse Ox O2 Delivery O2 Flow Rate FiO2 05/03/21 08:36 150/66 05/03/21 08:36 56 05/03/21 06:00 97.1 16 96 Room Air l I&O- Last 24 Hours up to 6 AM 05/03/21 06:00 Intake Total 1830 ml Output Total 200 ml Balance 1630 ml Jazz Mina May 03, 2021 12:13
[2021-05-03 14:00] VITALS: BP 162/76
--- NOTE | 2021-05-03 20:02 | IPN ---
PROGRESS NOTE DATE: 05/03/2021 SUBJECTIVE: Mr. Laurent is seen and examined this morning at the bedside. He tells me that his nausea and abdominal pain are resolved. He tells me he had breakfast and feels that he thinks he can keep it down. Nursing staff has not recorded much urine output but laboratory studies show improved renal function and the patient tells me he has been incontinent of urine and not been urinating in the provided urinal. OBJECTIVE: PHYSICAL EXAMINATION: VITAL SIGNS: Temperature 98.0, pulse 79, respiratory rate 18, blood pressure 150/66, saturating 95-96% on room air. INTAKE AND OUTPUT: Intake yesterday was 1.4 liters. Urine output yesterday was recorded as incontinent void and 375 mL. Weight in the bed scale today is not recorded. GENERAL APPEARANCE: The patient is seen lying in bed curled up, elderly male, frail body habitus. HEENT: The extraocular muscles are intact. Dentition is poor. Tongue is moist. NECK: Jugular veins are not elevated. HEART: Sounds are bradycardic. S1, S2. There is no peripheral edema. LUNGS: Clear to auscultation. No crackles or rales. Comfortable on room air. ABDOMEN: Soft and nontender today. EXTREMITIES: No clubbing, cyanosis, or edema. NEUROLOGICAL: He is cooperative with the physical exam, oriented to person, place and situation and answers simple questions appropriately. LABORATORY STUDIES: Sodium 141, potassium 3.6, bicarbonate 28, BUN 67, creatinine 2.9, glucose 205. Hemoglobin 10.5, platelet count 135. INPATIENT MEDICATIONS: The patient is done with a bag of D5W. He continues on aspirin, statin, Carvedilol, Pepcid, Ferrous Gluconate, Hydralazine, insulin, and Pristiq. There are no medication changes noted over the past 24 hours. PROBLEMS: 1. Acute kidney injury superimposed on chronic kidney disease stage 3b, borderline stage 4 - The patient's baseline creatinine is around 2.1. His acute kidney injury was in the setting of nausea, abdominal pain and poor oral intake. He does have a history of obstructive uropathy, however renal ultrasound done on this admission did not show any current obstruction. His renal function is improving and the patient did receive hypotonic fluid. Today he tells me that he is tolerating an oral diet and that his nausea and abdominal pain have abated. Hence, I did not renew the order for IV fluids. Nursing staff has not recorded much urine output, however the patient states he has been incontinent and has not been regularly using the urinal. 2. Hypernatremia - sodium level has improved from 147 yesterday down to 141 today. His hyperosmolar state is improved. He is encouraged for water intake. He did receive a liter of D5W yesterday and I did not renew the fluid order. If his oral intake does not turkey picker, I will place the patient back on gentle hypotonic fluid. We will see how he does now that his nausea and abdominal pain are improving. He no longer has a free water deficit at this time. 3. Diastolic congestive heart failure, chronic - The patient is not on any diuretics as an outpatient. He did receive gentle hypotonic fluid earlier on this admission and at present the IV fluids are held and the patient is encouraged for oral intake. We will continue to keep a close eye on his volume status. 4. Hypertension Systolic has been 120's to 150 which is reasonable and he is on Carvedilol and Hydralazine.
[2021-05-03] MEDS: DESVENLAFAXINE ER 50 MG TABLET (PRISTIQ) PO SCH (21:11)
[2021-05-03] MEDS: LATANOPROST 0.005% OPHTH SOLN 2.5 ML OU SCH (21:12)
[2021-05-03 22:00] VITALS: BP 128/84
[2021-05-04 06:00] VITALS: BP 146/85
[2021-05-04 06:11] LABS: CALCIUM LEVEL 8.2 MG/DL (8.8-10.2); CREATININE FOR GFR 3.15 MG/DL (0.70-1.30); GLOMERULAR FILTRATION RATE 20.9 (>42); POTASSIUM SERUM 4.2 MEQ/L (3.5-5.1)
[2021-05-04 06:23] LABS: BASO % 0.3 % (0.0-1.0); EOS # 0.1 10^3/uL (0.0-0.5); EOS % 1.7 % (0.0-3.0); HEMATOCRIT 30.8 % (42.0-52.0); LYMPH % 16.6 % (24.0-44.0); MEAN CORPUSCULAR HEMOGLOBIN 29.9 pg (27.0-33.0); MEAN CORPUSCULAR HGB CONC 32.5 g/dl (32.0-36.5); MEAN CORPUSCULAR VOLUME 92.2 fl (80.0-96.0); MONO # 0.4 10^3/uL (0.0-0.8); MONO % 6.8 % (2.0-8.0); NEUTROPHILS # 4.3 10^3/uL (1.5-8.5); NEUTROPHILS % 73.7 % (36.0-66.0); PLATELET COUNT, AUTOMATED 117 10^3/uL (150-450); RED BLOOD COUNT 3.34 10^6/uL (4.30-6.10); WHITE BLOOD COUNT 5.8 10^3/uL (4.0-10.0)
[2021-05-04] MEDS: SCOPOLAMINE 1MG TRANSDERMAL PATCH TOP SCH (08:50)
[2021-05-04] MEDS: FAMOTIDINE 20 MG TAB PO SCH (10:13)
[2021-05-04] MEDS: HumaLOG INSULIN (NovoLOG) PER UNIT SC SCH ×4 (10:13→20:12)
[2021-05-04] MEDS: **hydrALAZINE** 10 MG TAB PO SCH ×2 (10:14→20:22)
[2021-05-04] MEDS: ASPIRIN 81MG ENTERIC TABLET PO SCH (10:14)
[2021-05-04] MEDS: FERROUS GLUCONATE 324 MG TAB PO SCH ×2 (10:14→20:22)
[2021-05-04] MEDS: CARVedilol 6.25 MG TAB PO SCH ×2 (10:14→20:17)
[2021-05-04] MEDS: ATORVASTATIN 20 MG TAB PO SCH (10:14)
[2021-05-04] MEDS: BRIMONIDINE 0.15% OPHTH SOLN 5 ML OU SCH ×2 (10:15→20:25)
[2021-05-04] MEDS ORDERED: D5W 1,000 ML IV SCH (10:30)
[2021-05-04 14:00] VITALS: BP 160/74
--- NOTE | 2021-05-04 14:47 | IPNPDOC ---
Date Seen The patient was seen on 05/04/21. Progress Note SUBJECTIVE: Patient is a 70-year-old male with presented to the emergency room at [facility] with abdominal pain was subsequently transferred here for further management evaluation History of present illness: Patient is a 70-year-old male with a PMHx of Bladder CA (w/ obstructive uropathy / stent 01/26/2020), CAD s/p CABG, DM2, CKD4, GERD who is transferred from [facility] after he presented to the emergency room with abdominal pain. While at their ER. He has received a CT scan of his abdomen which revealed possibility of a stone necessitating the need for MRCP. Hence, patient was transferred to [facility] for further evaluation, an MRCP which was unrevealing. Events since last encounter: Differing reports of abdominal pain given by patient and by nursing staff. Patient reports improving abdominal pain centered in the area below the umbilicus and his right lower quadrant. Reports that he is eating better but nursing reports that he is not eating much at all. Per nursing staff he is also not drinking much fluids either. Lipsmacking still continues. His healthcare proxy was contacted who said the lip smacking and mouth movement is not new. Review of systems: Constitutional: Denies fever, chills, night sweats Respiratory: Denies, cough, shortness of breath Gastrointestinal: Denies nausea, vomiting, constipation, bright red blood per rectum; endorses diarrhea (3 8 episodes overnight and one this morning) Genitourinary: Denies dysuria, hematuria Endocrine: Reports increased thirst but this is contradicted by nurse OBJECTIVE PHYSICAL EXAMINATION: VITAL SIGNS: Please see below. GENERAL: 70-year-old male, resting in bed, no acute distress HEENT: Head normocephalic/atraumatic CARDIOVASCULAR: Regular rate and rhythm, no murmurs, rubs or gallop. RESPIRATORY: Clear to auscultation bilaterally no wheezes rhonchi or crackles. ABDOMINAL: Normoactive bowel sounds throughout; tender to palpation in right upper quadrant and left lower quadrant EXTREMITIES: Appropriate range of motion in all 4 extremities NEUROLOGICAL: Continues to lipsmacking normalized tongue, patient does take Abilify outpatient which may contribute to tardive dyskinesia LABORATORY DATA, IMAGING STUDIES, MICROBIOLOGY: Please see below. DVT prophylaxis ordered?: Teds and sequential ASSESSMENT AND PLAN: This is a 70-year-old male with abdominal pain and PAM.. PROBLEMS: Abdominal pain - etiology unclear - Patient reported lower abdominal pain below his bellybutton and right - Hemodynamically stable and afebrile - Lipase not significantly elevated - c/w IV fluid hydration D5W - GI on consultation - Dr. Ramirez with general surgery has been consulted and is input is greatly appreciated. Recommends medically optimizing and stabilizing this patient follow-up outpatient for lap cholecystectomy. Preop ERCP with papillotomy may decrease operative risk and prevent future episodes of gallstone pancreatitis (see consultation of Dr. Parsons for further information). PAM on CKD3 - possibly 2/2 pre-renal etiology, - Cr trending down and now 3.15 and has been started on D5W - Will check urinalysis and urine electrolytes - Will avoid nephrotoxic medications / adjust medication dosing as needed for kidney function - Continue with IV fluid hydration - Nephrology has seen the patient NIDDM2 with Hyperglycemia - A1c of 8.9 - c/w ISS Diastolic CHF - No evidence of exacerbation - Physical does not reveal any signs of fluid overload - Elevated BNP - Chest x-ray without any evidence of fluid overload (noted above) - Currently not on diuretics - ECHO results pending Bladder cancer (w/ obstructive uropathy / L ureteral stent 01/26/2020) - c/w Tamsulosin and Finasteride - Follows with urology as an outpatient CAD s/p CABG and stent - Denies any CP, SOB, or palpitations - EKG noted; prolonged QTc - c/w ASA, Atorvastatin, Carvedilol HTN - BP well controlled - c/w Carvedilol / Hydralazine with hold parameters DLP - c/w Atorvastatin Depression - c/w Desvenlafaxine - Will hold Aripiprazole (re: Prolonged QTc) GI prophylaxis - c/w Famotidine DVT prophylaxis - c/w TEDs/Sequentials (Hx of KAMI) DISPOSITION: Discharge pending clinical. VS, I&O, 24H, Fishbone Vital Signs/I&O Vital Signs Date Time Temp Pulse Resp B/P (MAP) Pulse Ox O2 Delivery O2 Flow Rate FiO2 05/04/21 10:14 156/68 05/04/21 10:14 62 05/04/21 06:00 97.5 18 95 Room Air I&O- Last 24 Hours up to 6 AM 05/04/21 06:00 Intake Total 504 ml Output Total 0 ml Balance 504 ml Laboratory Data 24H LABS Laboratory Tests 2 05/03/21 16:51: Bedside Glucose (Misc Panel) 152H 05/03/21 20:15: Bedside Glucose (Misc Panel) 233H 05/03/21 20:56: Magnesium Level 2.0 05/04/21 04:37: Bedside Glucose (Misc Panel) 305H 05/04/21 05:38: Immature Granulocyte % (Auto) 0.9, Neutrophils (%) (Auto) 73.7H, Lymphocytes (%) (Auto) 16.6L, Monocytes (%) (Auto) 6.8, Eosinophils (%) (Auto) 1.7, Basophils ( %) (Auto) 0.3, Neutrophils # (Auto) 4.3, Lymphocytes # (Auto) 1.0L, Monocytes # (Auto) 0.4, Eosinophils # (Auto) 0.1, Basophils # (Auto) 0.0, Nucleated Red Blood Cells % (auto) 0.0, Anion Gap 8, Glomerular Filtration Rate 20.9L, Calcium Level 8.2L 05/04/21 10:06: Bedside Glucose (Misc Panel) 360H 05/04/21 11:28: Bedside Glucose (Misc Panel) 376H CBC/BMP Laboratory Tests 05/04/21 05:38 GME ATTESTATION GME ATTESTATION My faculty preceptor for this patient encounter was physically present during the encounter and was fully available. All aspects of the patient interview, examination, medical decision making process, and medical care plan development were reviewed and approved by the faculty preceptor. The faculty preceptor is aware and concurs with the plan as stated in the body of this note and will att est to such by his/her cosignature. ATTENDING NOTE I personally examined the patient and discussed his findings, course and management thus far, subspecialty recommendations and surgery's recommendations and I agree with the detailed plan above. It appears at this time, the surgery service would prefer for him to be medically optimized to eventually have an elective lap renata as an outpatient. In the meantime, his course is c/b PAM for which today he is receiving IV hydration with D5W per nephrology. Tristan Bradley DO May 04, 2021 14:47 ARISTIDES JAIME MD May 04, 2021 17:22
--- NOTE | 2021-05-04 17:56 | IPN ---
NEPHROLOGY PROGRESS NOTE DATE: 05/04/2021 SUBJECTIVE: Mr. Laurent is seen and examined this morning at the bedside. He feels well. He offers no complaints. He tells me that his abdominal pain and nausea have resolved and that he is tolerating his diet, however nursing staff only recorded 500 mL oral intake yesterday, and his laboratory studies today show a bump up in creatinine along with reoccurring hypernatremia (sodium equals 145 today). OBJECTIVE: PHYSICAL EXAMINATION: VITAL SIGNS: Temperature 97.4, pulse 56, respiratory rate 16, blood pressure 160/74, saturating 96% on room air. INTAKE AND OUTPUT: Intake yesterday was 800 mL. Urine output was recorded three incontinent voids and three incontinent bowel movements. Weight in the bed scale today is not recorded. GENERAL APPEARANCE: The patient was seen sitting in the chair eating lunch, awake, alert and in no distress. HEENT: The extraocular muscles are intact. Dentition is poor. Tongue is moist. NECK: Jugular veins are not elevated. HEART: Sounds are bradycardic. S1, S2, there is absolutely no peripheral nor dependent edema. LUNGS: Clear to auscultation. No crackles or rales. He is comfortable on room air. ABDOMEN: Soft and nontender. There are bowel sounds. EXTREMITIES: No clubbing, cyanosis, or edema. GENITOURINARY: He is noted to be incontinent of urine. NEUROLOGICAL: He is cooperative with physical exam, oriented to person, place, situation and answers simple questions appropriately. LABORATORY STUDIES: Sodium 145 with a glucose of 323, giving a corrected sodium of 149. BUN 65, creatinine 3.1, GFR 20, hemoglobin 10.0, platelet count 117. INPATIENT MEDICATIONS: I started the patient on D5W at 75 mL an hour. His remainder medications are all unchanged as compared to yesterday. PROBLEMS: 1. Acute kidney injury superimposed on chronic kidney disease stage 3b, borderline stage 4 the patient's baseline creatinine is around 2.1. He has an acute kidney injury, currently in the setting of dehydration with recent nausea, abdominal pain and ongoing poor oral intake. His corrected sodium on the blood work today is 149 (sodium level is 145 but glucose is 323, giving corrected sodium of 149). The patient has a free water deficit of 2 liters, and I have ordered D5W to run at 75 mL an hour, and I have asked the patient to increase his oral fluid intake. 2. Hypernatremia corrected sodium is 149 with a free water deficit of 2.2 liters. Encourage oral water intake and he is written for D5W at present. His prior abdominal pain and nausea have improved, and I am hopeful that he will be able to increase the oral intake. 3. Diastolic congestive heart failure, chronic - The patient is not on any diuretic as an outpatient. He is clinically dry on exam. He is receiving hypotonic fluid. It will help with his sodium level and with his acute kidney injury. We will keep an eye on his volume status. 4. Hypertension - blood pressures are acceptably controlled and I made no change to the current regimen of Carvedilol and Hydralazine. 5. History of obstructive uropathy and history of left ureteral stent recent renal imaging did not show any current obstruction. The patient has been incontinent of urine and nursing staff has been unable to quantify the urine output. The patient is on Flomax and Finasteride and has a history of bladder cancer.
[2021-05-04] MEDS: DESVENLAFAXINE ER 50 MG TABLET (PRISTIQ) PO SCH (20:21)
[2021-05-04] MEDS: LATANOPROST 0.005% OPHTH SOLN 2.5 ML OU SCH (20:25)
[2021-05-04 22:00] VITALS: BP 130/88
[2021-05-05 06:00] VITALS: BP 113/80
[2021-05-05 06:07] LABS: BASO % 0.4 % (0.0-1.0); EOS # 0.1 10^3/uL (0.0-0.5); EOS % 2.5 % (0.0-3.0); HEMATOCRIT 28.6 % (42.0-52.0); HEMOGLOBIN 9.4 g/dl (13.5-17.5); LYMPH # 1.1 10^3/uL (1.5-5.0); LYMPH % 19.3 % (24.0-44.0); MEAN CORPUSCULAR HEMOGLOBIN 30.2 pg (27.0-33.0); MEAN CORPUSCULAR HGB CONC 32.9 g/dl (32.0-36.5); MONO # 0.5 10^3/uL (0.0-0.8); NEUTROPHILS # 3.9 10^3/uL (1.5-8.5); NEUTROPHILS % 68.6 % (36.0-66.0); PLATELET COUNT, AUTOMATED 103 10^3/uL (150-450); RED BLOOD COUNT 3.11 10^6/uL (4.30-6.10); WHITE BLOOD COUNT 5.7 10^3/uL (4.0-10.0)
[2021-05-05 06:30] LABS: CALCIUM LEVEL 8.2 MG/DL (8.8-10.2); CREATININE FOR GFR 2.9 MG/DL (0.70-1.30); POTASSIUM SERUM 3.9 MEQ/L (3.5-5.1)
[2021-05-05] MEDS: CARVedilol 6.25 MG TAB PO SCH ×2 (09:00→20:42)
[2021-05-05] MEDS: HumaLOG INSULIN (NovoLOG) PER UNIT SC SCH ×4 (09:23→20:02)
[2021-05-05] MEDS: FAMOTIDINE 20 MG TAB PO SCH (09:24)
[2021-05-05] MEDS: ATORVASTATIN 20 MG TAB PO SCH (09:24)
[2021-05-05] MEDS: FERROUS GLUCONATE 324 MG TAB PO SCH ×2 (09:24→20:43)
[2021-05-05] MEDS: ASPIRIN 81MG ENTERIC TABLET PO SCH (09:24)
[2021-05-05] MEDS: **hydrALAZINE** 10 MG TAB PO SCH (09:39)
[2021-05-05] MEDS: TAMSULOSIN 0.4 MG CAP PO SCH ×2 (10:38→20:43)
[2021-05-05] MEDS: BRIMONIDINE 0.15% OPHTH SOLN 5 ML OU SCH ×2 (10:38→20:45)
[2021-05-05 10:39] VITALS: BP 180/93
[2021-05-05] MEDS: **hydrALAZINE HCL** 25 MG TAB PO SCH ×2 (11:10→18:02)
[2021-05-05 11:43] LABS: PERCENT SATURATION 38.9 % (19.7-50.0)
[2021-05-05 12:52] VITALS: BP 116/52
[2021-05-05 14:00] VITALS: BP 144/65
--- NOTE | 2021-05-05 14:17 | IPNPDOC ---
Date Seen The patient was seen on 05/05/21. Progress Note SUBJECTIVE: Patient is a 70-year-old male with abdominal pain and possible acute gallstone peritonitis/cholecystitis Events since last encounter: Patient reported doing well overnight. Denied abdominal pain but reports fullness below his bellybutton and. He denies diarrhea and states he last ate last night and has been drinking more. As about his home health situation he states he receives home health care 3 times a week, other than that he takes care of himself. Nurses did report urinary retention over the night. OBJECTIVE PHYSICAL EXAMINATION: VITAL SIGNS: Please see below. GENERAL: 70-year-old male, resting in bed, no acute distress HEENT: Normocephalic atraumatic CARDIOVASCULAR: Regular rate and rhythm, no murmurs, no rubs, no gallops RESPIRATORY: Clear to auscultation bilaterally ABDOMINAL: Normoactive bowel sounds, reported some tenderness palpation of the lower quadrants but apparently later in the day reported EXTREMITIES: 2+ radial pulses, 1+ pedal pulses (faint) Review of systems: Constitutional: Denies fever, chills, night sweats Respiratory: Denies cough, shortness of breath Gastrointestinal: Denies nausea, vomiting, constipation, bright red blood per rectum; reported diarrhea last night Genitourinary: Denies dysuria, hematuria Endocrine: Reports drinking more liquids LABORATORY DATA, IMAGING STUDIES, MICROBIOLOGY: Please see below. DVT prophylaxis: Teds and sequentials ASSESSMENT AND PLAN: This is a -year-old male with improving abdominal pain and possible acute cholecystitis/gallstone pancreatitis with reported urin amparo retentions per nurses PROBLEMS: Abdominal pain - etiology unclear -Patient reports improving abdominal pain - Hemodynamically stable and afebrile - Lipase not significantly elevated - c/w IV fluid hydration D5W - GI on consultation - Dr. Ramirez with general surgery has been consulted and is input is greatly appreciated. Recommends medically optimizing and stabilizing this patient follow-up outpatient for lap cholecystectomy. Preop ERCP with papillotomy may decrease operative risk and prevent future episodes of gallstone pancreatitis (see consultation of Dr. Parsons for further information). PAM on CKD3 - possibly 2/2 pre-renal etiology, - Cr trending down and now 2.90 - Will avoid nephrotoxic medications / adjust medication dosing as needed for kidney function - Nephrology has seen the patient - Carvedilol was held NIDDM2 with Hyperglycemia - A1c of 8.9 - c/w ISS Diastolic CHF - No evidence of exacerbation - Physical does not reveal any signs of fluid overload - Elevated BNP - Chest x-ray without any evidence of fluid overload (noted above) - Currently not on diuretics - ECHO results pending Bladder cancer (w/ obstructive uropathy / L ureteral stent 01/26/2020) - Follows with urology as an outpatient - Tamsulosin 0.4 mg p.o. twice daily for urinary retention CAD s/p CABG and stent - Denies any CP, SOB, or palpitations - EKG noted; prolonged QTc - c/w ASA, Atorvastatin, Carvedilol HTN - BP hypertensive - Carvedilol held due to being bradycardic - Hydralazine 10 mg p.o. twice daily added DLP - c/w Atorvastatin Depression - c/w Desvenlafaxine - Will hold Aripiprazole (re: Prolonged QTc) GI prophylaxis - c/w Famotidine DISPOSITION: Discharge pending clinical improvement. VS, I&O, 24H, Fishbone Vital Signs/I&O Vital Signs Date Time Temp Pulse Resp B/P (MAP) Pulse Ox O2 Delivery O2 Flow Rate FiO2 05/05/21 12:52 61 116/52 (73) 05/05/21 06:00 97.8 18 96 Room Air I&O- Last 24 Hours up to 6 AM 05/05/21 06:00 Intake Total 1792.5 ml Output Total 25 ml Balance 1767.5 ml Laboratory Data 24H LABS Laboratory Tests 2 05/04/21 17:00: Bedside Glucose (Misc Panel) 107 05/04/21 20:07: Bedside Glucose (Misc Panel) 143H 05/05/21 05:40: Immature Granulocyte % (Auto) 1.2, Neutrophils (%) (Auto) 68.6H, Lymphocytes (%) (Auto) 19.3L, Monocytes (%) (Auto) 8.0, Eosinophils (%) (Auto) 2.5, Basophils (%) (Auto) 0.4, Neutrophils # (Auto) 3.9, Lymphocytes # (Auto) 1.1L, Monocytes # (Auto) 0.5, Eosinophils # (Auto) 0.1, Basophils # (Auto) 0.0, Nucleated Red Blood Cells % (auto) 0.0, Anion Gap 8, Glomerular Filtration Rate 23.0L, Calcium Level 8.2L, Iron Level 51L, Total Iron Binding Capacity 131L, Transferrin % Saturation 38.9, Ferritin 375 05/05/21 11:13: Bedside Glucose (Misc Panel) 282H CBC/BMP Laboratory Tests 05/05/21 05:40 GME ATTESTATION GME ATTESTATION My faculty preceptor for this patient encounter was physically present during the encounter and was fully available. All aspects of the patient interview, examination, medical decision making process, and medical care plan development were reviewed and approved by the faculty preceptor. The faculty preceptor is aware and concurs with the plan as stated in the body of this note and will attest to such by his/her cosignature. ATTENDING NOTE I personally examined the patient together with the medical student and we obtained the interim history together, discussed his findings, investigative results and I agree with the above noted resident findings, assessment and plan. Trisatn Bradley DO May 05, 2021 14:17 ARISTIDES JAIME MD May 06, 2021 09:02
--- NOTE | 2021-05-05 18:02 | IPN ---
NEPHROLOGY PROGRESS NOTE DATE: 05/05/2021 SUBJECTIVE: Mr. Laurent is seen and examined this morning at the bedside. He denies any complaints. No shortness of breath, no abdominal pain, no chest pain, no nausea, no vomiting, no diarrhea. Laboratory studies show some improvement in renal function after he got a liter of D5W yesterday. OBJECTIVE: PHYSICAL EXAMINATION: VITAL SIGNS: Temperature 97.8, pulse 66, respiratory rate 18, blood pressure 144/65, saturating 96% on room air. Weight in the bed scale today is not recorded. INTAKE AND OUTPUT: There were four voids recorded yesterday and one bowel movement. GENERAL APPEARANCE: The patient is seen awake, alert, lying in bed in no distress, elderly male. HEENT: Pupils are reactive to light. Tongue is moist. NECK: Supple. Jugular veins are not elevated. HEART: Sounds are regular, S1, S2. There is absolutely no peripheral edema. LUNGS: Clear to auscultation bilaterally. No crackles or rales. ABDOMEN: Soft and nontender. EXTREMITIES: Negative for clubbing, cyanosis, or edema. NEUROLOGICAL: He is oriented to person, place, situation and answers simple questions appropriately and cooperates with the physical exam. LABORATORY STUDIES: White count 5.7, hemoglobin 9.4, platelet count 103, sodium 142, potassium 3.9, bicarbonate 24, BUN 54, creatinine 2.9, iron 51, transferrin saturation 38%. INPATIENT MEDICATIONS: The patient's medications were reviewed by myself. He received a liter of D5W yesterday. He is off of IV fluids today. I note his Hydralazine dose was increased to 25 mg p.o. q. 6 hourly by the Primary Service and he is on Flomax 0.4 mg p.o. twice daily. PROBLEMS: 1. Acute kidney injury, non-oliguric, superimposed on chronic kidney disease stage 3b borderline stage 4 - The patient's baseline creatinine is a low 2. He has an acute kidney injury in the setting of dehydration. He received hypotonic IV fluids on this admission and creatinine has decreased from 4.0 on admission down to 2.9 today. Renal imaging was negative for obstruction, and he is tolerating oral intake now. 2. Hypernatremia it has corrected with D5W administration. The patient is encouraged for oral fluid intake. His corrected sodium today is within normal range. I did not order any further hypotonic fluid today. Nursing staff is asked to encourage fluid intake. 3. Combined systolic and diastolic congestive heart failure - The patient does not take any diuretics chronically. He was clinically dry on exam. He did receive hypotonic fluid earlier. His prior hypernatremia improved. He needs to increase his oral fluid intake. 4. Hypertension Primary Team increased the dose of Hydralazine. He continues on Carvedilol.
[2021-05-05] MEDS: DESVENLAFAXINE ER 50 MG TABLET (PRISTIQ) PO SCH (20:43)
[2021-05-05] MEDS: LATANOPROST 0.005% OPHTH SOLN 2.5 ML OU SCH (20:46)
[2021-05-05 22:00] VITALS: BP 166/77
[2021-05-06] MEDS: **hydrALAZINE HCL** 25 MG TAB PO SCH ×3 (00:26→12:10)
[2021-05-06 06:00] VITALS: BP 172/73
[2021-05-06 07:44] LABS: BASO % 0.3 % (0.0-1.0); EOS # 0.2 10^3/uL (0.0-0.5); EOS % 2.3 % (0.0-3.0); HEMATOCRIT 28.7 % (42.0-52.0); HEMOGLOBIN 9.6 g/dl (13.5-17.5); LYMPH % 15.5 % (24.0-44.0); MEAN CORPUSCULAR HEMOGLOBIN 30.7 pg (27.0-33.0); MEAN CORPUSCULAR HGB CONC 33.4 g/dl (32.0-36.5); MEAN CORPUSCULAR VOLUME 91.7 fl (80.0-96.0); MONO # 0.5 10^3/uL (0.0-0.8); MONO % 8.3 % (2.0-8.0); NEUTROPHILS # 4.6 10^3/uL (1.5-8.5); NEUTROPHILS % 72.2 % (36.0-66.0); PLATELET COUNT, AUTOMATED 117 10^3/uL (150-450); RED BLOOD COUNT 3.13 10^6/uL (4.30-6.10); WHITE BLOOD COUNT 6.4 10^3/uL (4.0-10.0)
[2021-05-06 07:55] LABS: CALCIUM LEVEL 8.1 MG/DL (8.8-10.2); CREATININE FOR GFR 3.05 MG/DL (0.70-1.30); GLOMERULAR FILTRATION RATE 21.7 (>42); POTASSIUM SERUM 4.1 MEQ/L (3.5-5.1)
[2021-05-06] MEDS: ASPIRIN 81MG ENTERIC TABLET PO SCH (08:49)
[2021-05-06] MEDS: TAMSULOSIN 0.4 MG CAP PO SCH (08:49)
[2021-05-06] MEDS: FERROUS GLUCONATE 324 MG TAB PO SCH (08:49)
[2021-05-06] MEDS: CARVedilol 6.25 MG TAB PO SCH (08:50)
[2021-05-06] MEDS: ATORVASTATIN 20 MG TAB PO SCH (08:50)
[2021-05-06] MEDS: HumaLOG INSULIN (NovoLOG) PER UNIT SC SCH ×2 (08:50→12:10)
[2021-05-06] MEDS: FAMOTIDINE 20 MG TAB PO SCH (08:50)
[2021-05-06] MEDS: BRIMONIDINE 0.15% OPHTH SOLN 5 ML OU SCH (08:53)
[2021-05-06] MEDS ORDERED: TAMS1CAP17 PO (10:02)
[2021-05-06 12:10] VITALS: BP 133/56
--- NOTE | 2021-05-06 16:25 | DS.PDOC ---
Discharge Summary General Date of Admission Apr 30, 2021 at 20:56 Date of Discharge May 06, 2021 Attending Physician: ARISTIDES JAIME MD Specialist/Consultants Involve DO Dr. Anaya Gilbert MD Dr. David Rendl, MD Dr. Leo Gosselin Jr, MD Discharge Summary PROCEDURES PERFORMED DURING STAY: [None]. ADMITTING DIAGNOSES: 1. Abdominal pain secondary to likely choledocholithiasis 2. PAM with chronic kidney disease 3. Hyperglycemia 4. Heart failure with reduced ejection fraction 5. History of bladder cancer 6. Hypertension 7. Coronary artery disease status post CABG and stent 8. Hyperlipidemia 9. Depression DISCHARGE DIAGNOSES: 1. Abdominal pain secondary to likely choledocholithiasis 2. PAM with chronic kidney disease 3. Hyperglycemia 4. Heart failure with reduced ejection fraction 5. History of bladder cancer 6. Hypertension 7. Coronary artery disease status post CABG and stent 8. Hyperlipidemia 9. Depression COMPLICATIONS/CHIEF COMPLAINT: Acute Kidney Injury,Cholelithiasis. HISTORY OF PRESENT ILLNESS: Patient is a 70-year-old male who presented to the [facility] on 04/30/2021 with abdominal pain. While the patient was there he had a CT done which showed cholelithiasis with biliary dilation up to 11 mm without ductal stone. He was then transferred to [facility] for MRCP. MRCP done at [facility] showed cholelithiasis without acute cholecystitis and no biliary duct dilation. Creatinine was elevated at 4.4 with a BUN of 111, lipase of 878, without evidence of DKA. Glucose also elevated at 323 by the time of arrival to [facility]. Subsequently admitted for further inpatient treatment and management. HOSPITAL COURSE: 05/01/2021: Was examined at bedside and denied any abdominal pain, nausea, vomiting or diarrhea. Reported that he was producing urine urinary scan revealed no evidence of retention. Chest x-ray some mild cardiomegaly no evidence of cardiopulmonary disease. Renal ultrasound showed aajlieolhh-zwdr-znbwimos lesion seen in left kidney consistent with MRI findings. Creatinine decreased to 4.03. Aripiprazole was held due to long QT. 05/02/2021: Surgery was consulted for possible inpatient cholecystectomy. Creatinine and lipase decreased to 3.21 and 390 respectively. Hypotonic IV fluid was added due to patient being visibly nauseous and not having significant oral intake recorded. 05/03/2021: Patient continues to report improving abdominal pain. He also has noted improvements in appetite and thirst. Creatinine decreased to 2.99. General surgery was consulted who recommended patient be medically optimized in the discussion of outpatient cholecystectomy will take place. 05/04/2021: Patient continues to report increased thirst but this was somewhat contradicted by nursing staff. Creatinine increased slightly to 3.15. Water intake was encouraged. 05/05/2021: Patient reported no abdominal pain but did have some bouts of diarrhea last night. Carvedilol was held due to bradycardia. Tamsulosin 0.4 mg p.o. twice was given for urinary retention reported by nurses overnight. 05/06/2021: Patient still reported no abdominal pain but was tender to palpation in the left lower quadrant. No issues overnight were reported by patient. He has been tolerating p.o. intake. Aripiprazole continue be held due to long QT interval and patient will follow up with his PCP outpatient to discuss that. Tamsulosin was also given for outpatient use at 0.4 mg daily. Review of systems: Constitutional: Denies fever, chills Cardiac: Denies chest pain, tachycardia Respiratory: Denies shortness of breath, pain with breathing Gastrointestinal: Denies nausea, vomiting, diarrhea Genitourinary: Denies hematuria, dysuria Neuro: Denies headache, dizziness DISCHARGE MEDICATIONS: Please see below. ALLERGIES: Please see below. PHYSICAL EXAMINATION ON DISCHARGE: VITAL SIGNS: Please see below. GENERAL: 70-year-old male, resting in bed, no acute distress HEENT: Head normocephalic/atraumatic CARDIOVASCULAR EXAMINATION: Regular rate and rhythm, no murmurs, rubs or gallops RESPIRATORY EXAMINATION: Clear to auscultation bilaterally ABDOMINAL EXAMINATION: Normoactive bowel sounds, quadrant minimally tender to palpation EXTREMITIES: 2+ radial pulses bilaterally, 1+ pedal pulses bilaterally NEUROLOGICAL EXAMINATION: Neck smacking and tongue rolling continues. LABORATORY DATA: Please see below. IMAGING: Abdominal MRI 04/30/2021: 1. Severely limited by motion. 2. Cholelithiasis without evidence of acute cholecystitis. 3. No biliary ductal dilatation. 4. T2-hyperintense lesion in the upper pole of the right kidney. Suspect renal cyst. No follow-up is necessary. Chest x-ray 05/01/2021: Mild cardiomegaly accentuated by technique. There is no evidence of acute cardiopulmonary disease. Renal ultrasound 05/01/2021: There is a hypoechoic near anechoic lesions seen in the left kidney as described above consistent with the MRI finding. PROGNOSIS: Good ACTIVITY: As tolerated. DIET: Normal diet DISPOSITION: Home and continue home care with home health aide DISCHARGE INSTRUCTIONS AND ITEMS TO FOLLOW-UP ON OUTPATIENT: 1. Follow-up with your PCP within the next 7 days. 2. Doscontinue Aripiprazole due to Long QT interval until can be assessed by PCP. 3. Follow-up with nephrology and general surgery within 2 weeks to schedule laparoscopic cholecystectomy. 4. Continue tamsulosin for the next 30 days. 5. Update home health aide with events from this hospital stay to allow them to adjust accordingly and plan follow-ups. 6. Continue taking home medications as directed. 7. If presenting symptoms worsen and/or return, please return to the ED for further evaluation and management. 8. Thank you for allowing us to be part of your care. DISCHARGE CONDITION: [Stable]. TIME SPENT ON DISCHARGE: 35 minutes. Vital Signs/I&Os Vital Signs Date Time Temp Pulse Resp B/P (MAP) Pulse Ox O2 Delivery O2 Flow Rate FiO2 05/06/21 12:10 133/56 05/06/21 08:50 66 05/06/21 06:00 98.6 17 98 Room Air I&O- Last 24 Hours up to 6 AM 05/06/21 06:00 Intake Total 390 ml Output Total 200 ml Balance 190 ml Laboratory Data Labs 24H Laboratory Tests 2 05/05/21 17:15: Bedside Glucose (Misc Panel) 122H 05/05/21 19:25: Bedside Glucose (Misc Panel) 182H 05/06/21 07:07: Immature Granulocyte % (Auto) 1.4, Neutrophils (%) (Auto) 72.2H, Lymphocytes (%) (Auto) 15.5L, Monocytes (%) (Auto) 8.3H, Eosinophils (%) (Auto) 2.3, Basophils (%) (Auto) 0.3, Neutrophils # (Auto) 4.6, Lymphocytes # (Auto) 1.0L, Monocytes # (Auto) 0.5, Eosinophils # (Auto) 0.2, Basophils # (Auto) 0.0, Nucleated Red Blo od Cells % (auto) 0.0, Anion Gap 7L, Glomerular Filtration Rate 21.7L, Calcium Level 8.1L 05/06/21 11:34: Bedside Glucose (Misc Panel) 259H CBC/BMP Laboratory Tests 05/06/21 07:07 FSBS Laboratory Tests Test 05/05/21 17:15 05/05/21 19:25 05/06/21 11:34 Range/Units Bedside Glucose (Misc Panel) 122 182 259 83-110 MG/DL Discharge Medications Scheduled Aspirin (Ecotrin) 81 Mg Tablet.dr, 81 MG PO DAILY, (Reported) Atorvastatin Calcium (Atorvastatin Calcium) 40 Mg Tablet, 40 MG PO DAILY, (Reported) Brimonidine Tartrate/Timolol (Combigan 0.2%-0.5% Eye Drops) 5 Ml Drops, 1 DROP OU BID, (Reported) Carvedilol (Carvedilol) 6.25 Mg Tablet, 6.25 MG PO BID, (Reported) Desvenlafaxine Succinate (Desvenlafaxine Succinate ER) 50 Mg Tab.er.24h, 50 MG PO QHS, (Reported) Ergocalciferol (Vitamin D2) (Drisdol) 1,250 Mcg Capsule, 1,250 MCG PO weekly, (Reported) MON Famotidine (Famotidine) 40 Mg Tablet, 40 MG PO DAILY, (Reported) Ferrous Gluconate (Ferrous Gluconate) 324 Mg Tablet, 324 MG PO BID, (Reported) Glipizide (Glipizide ER) 5 Mg Tab.er.24, 5 MG PO DAILY, (Reported) Hydralazine HCl (Hydralazine HCl) 10 Mg Tablet, 10 MG PO BID, (Reported) Latanoprost (Xalatan) 0.005% 2.5ML Drops, 1 DROP OU QHS, (Reported) Tamsulosin Hcl (Tamsulosin HCl) 0.4 Mg Capsule, 0.4 MG PO DAILY for Urinary retention Allergies Coded Allergies: [place] (Verified Allergy, Intermediate, hives, 11/17/19) GME ATTESTATION GME ATTESTATION My faculty preceptor for this patient encounter was physically present during the encounter and was fully available. All aspects of the patient interview, examination, medical decision making process, and medical care plan development were reviewed and approved by the faculty preceptor. The faculty preceptor is aware and concurs with the plan as stated in the body of this note and will attest to such by his/her cosignature. ATTENDING NOTE I personally examined Mr. Laurent and discussed his findings, hospital course, clinical progress and plan with nephrology and the resident team and I agree with the above thoroughly noted synopsis of his course, assessment and plan. Briefly he was admitted with abdominal pain with c/f choledolithiasis and gallstones with a dilated CBD per outside imaging and was transferred to [facility] where MRCP showed CBD diameter having normalized with presumed passed stone and GI was consulted and recommended cholecystectomy and surgery deferred it to the outpatient setting. Thankfully his abdominal pain resolved. His course was c/b an PAM on CKD that improved with hydration and hypovolemic hypernatremia that also improved with hydration. He is now being discharged with surgery follow up, nephrology follow up and PCP follow up within 1 week. Tristan Bradley DO May 06, 2021 16:25 ARISTIDES JAIME MD May 07, 2021 08:34
--- NOTE | 2021-05-07 10:51 | ECGEPIP ---
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 Electronically Signed on 05-07-2021 10:50:57 EDT by Davis Ayala
== END 2021-05-06 14:30 | disposition home health service (06) | DRG 683 ==
LOC: M MSPAV 20:56
PROVIDERS: ADMIT Internal Medicine; ATTEND Internal Medicine
DX: N17.9 Acute kidney failure, unspecified (principal); I50.32 Chronic diastolic (congestive) heart failure; I13.0 Hypertensive heart and chronic kidney disease with heart failure and stage 1 through stage 4 chronic kidney disease, or unspecified chronic kidney disease; E87.0 Hyperosmolality and hypernatremia; K80.20 Calculus of gallbladder without cholecystitis without obstruction; N18.32 Chronic kidney disease, stage 3b; I25.10 Atherosclerotic heart disease of native coronary artery without angina pectoris; E78.5 Hyperlipidemia, unspecified; F32.9 Major depressive disorder, single episode, unspecified; E86.0 Dehydration; R11.2 Nausea with vomiting, unspecified; E11.65 Type 2 diabetes mellitus with hyperglycemia; E11.22 Type 2 diabetes mellitus with diabetic chronic kidney disease; R32 Unspecified urinary incontinence; K21.9 Gastro-esophageal reflux disease without esophagitis; Z85.51 Personal history of malignant neoplasm of bladder; Z95.5 Presence of coronary angioplasty implant and graft; Z79.82 Long term (current) use of aspirin; Z79.84 Long term (current) use of oral hypoglycemic drugs; Z79.899 Other long term (current) drug therapy; Z91.018 Allergy to other foods

== ENCOUNTER → 2021-05-31 | Outpatient (REF) | payer MEDICARE ==
[~2021-05-31] MED LIST changes: +DESV50TA3 PO; +ECOT81TA5 PO; +FERR32TA PO; +GLIP5TAB20 PO; +HYDR10TAB PO; +TAMS1CAP17 PO
== END ==
LOC: M SMT 13:15
PROVIDERS: ATTEND Urology
DX: C67.9 Malignant neoplasm of bladder, unspecified (principal)

== ENCOUNTER → 2021-06-16 | Outpatient (CLI) | payer MEDICARE | LOC: M LABSMTC 10:03 | PROVIDERS: ATTEND Anesthesiology | DX: Z01.818 Encounter for other preprocedural examination (principal); Z11.52 Encounter for screening for COVID-19 ==

== ENCOUNTER → 2022-03-06 | Outpatient (REF) | payer MEDICARE, OTHER | LOC: M SMT 17:38 | PROVIDERS: ATTEND Urology | DX: C67.9 Malignant neoplasm of bladder, unspecified (principal) ==

== ENCOUNTER → 2022-08-29 | Outpatient (REF) | payer MEDICARE, MEDICAID ==
[~2022-08-29] MED LIST changes: +CLOP75TA99 PO; -PLAV1TAB2 PO
[2022-08-29 19:27] LABS: CREATININE, URINE 173.6 MG/DL; MAU/CREAT RATIO 131.3 MCG/MG (0.0-30.0)
== END ==
LOC: M LAB REF 17:09
PROVIDERS: ATTEND Internal Medicine Nephrology
DX: E11.22 Type 2 diabetes mellitus with diabetic chronic kidney disease (principal); N18.4 Chronic kidney disease, stage 4 (severe)

== ENCOUNTER → 2022-09-11 | Outpatient (REF) | payer MEDICARE, MEDICAID, OTHER | LOC: M SMT 13:10 | PROVIDERS: ATTEND Urology | DX: C67.9 Malignant neoplasm of bladder, unspecified (principal) ==

== ENCOUNTER → 2023-02-15 | Outpatient (REF) | LOC: SKLAB4 09:41 | PROVIDERS: ATTEND Internal Medicine | DX: D64.9 Anemia, unspecified (principal) ==

== ENCOUNTER → 2023-02-15 | Outpatient (REF) ==
[2023-02-15 08:56] LABS: MEAN CORPUSCULAR VOLUME 93.3 fl (80.0-96.0); PLATELET COUNT, AUTOMATED 173 10^3/uL (150-450); RED BLOOD COUNT 2.25 10^6/uL (4.30-6.10); WHITE BLOOD COUNT 6.2 10^3/uL (4.0-10.0)
[2023-02-15 09:00] LABS: HEMOGLOBIN 6.3 g/dl (13.5-17.5)
[2023-02-15 09:16] LABS: ALBUMIN 1.7 G/DL (3.2-5.2); ALKALINE PHOSPHATASE 64 U/L (46-116); ALT/SGPT 11 U/L (7.0-40); AST/SGOT < 8 U/L (<34); BILIRUBIN,TOTAL 0.3 MG/DL (0.3-1.2); BLOOD UREA NITROGEN 28 MG/DL (9-23); CALCIUM LEVEL 7.5 MG/DL (8.3-10.6); CARBON DIOXIDE LEVEL 25 MMOL/L (20-31); CHLORIDE LEVEL 113 MMOL/L (98-107); CREATININE FOR GFR 2.17 MG/DL (0.70-1.30); GLUCOSE, FASTING 200 MG/DL (74-106); MAGNESIUM LEVEL 1.6 MG/DL (1.8-2.4); SODIUM LEVEL 144 MMOL/L (136-145); TOTAL PROTEIN 4.6 G/DL (5.7-8.2)
== END ==
LOC: SKLAB4 07:58
PROVIDERS: ATTEND Internal Medicine
DX: I10 Essential (primary) hypertension (principal); E78.5 Hyperlipidemia, unspecified